=== PATIENT | male | born 1950 | race Caucasian/White ===

== ENCOUNTER 2022-08-20 03:27 | Outpatient (CLI) | payer OTHER, SELFPAY ==
[2022-08-20 13:47] LABS: Abs Immature Grans 0.06 10^3/uL (0.0-0.06); Absolute Basophil Count 0.08 10^3/uL (0.0-0.2); Absolute Eosinophil Count 0.18 10^3/uL (0.0-0.7); Absolute Lymphocyte Count 1.76 10^3/uL (1.2-3.4); Absolute Monocyte Count 0.81 10^3/uL (0.1-0.8); Absolute Neutrophil Count 5.76 10^3/uL (1.2-6.7); Basophils % 0.9; Eosinophils % 2.1; HCT 43.9 % (40.0-50.0); HGB 15.3 g/dL (13.5-17.5); Immature Grans % 0.7; Lymphocytes % 20.3; MCH 32.6 pg (27.0-33.0); MCHC 34.9 % (32.0-36.0); MCV 93 fL (80-95); MPV 9.9 fL (8.0-11.0); Monocytes % 9.4; Neutrophils % 66.6; Platelet Count 235 10^3/uL (130-400); RDW 13.6 % (11.8-14.1); WBC 8.65 10^3/uL (4.4-10.8)
[2022-08-20 14:03] LABS: ALT 33 U/L (16-63); AST 24 U/L (15-37); Albumin 3.8 g/dL (3.4-5.0); Alkaline Phosphatase 64 U/L (46-116); Anion Gap 6.5 mmol/L (3-11); BUN 15 mg/dL (7-18); Bilirubin, Total 0.6 mg/dL (0.2-1.0); CO2 29.5 mmol/L (21.0-32.0); CREATININE 1.1 mg/dL (0.70-1.30); Chloride 101 mmol/L (98-107); Estimated GFR 70.44 (mL/min/1.73m2); Glucose 100 mg/dL (74-106); Sodium 137 mmol/L (136-145); Total Protein 6.9 g/dL (6.4-8.2)
[2022-08-21 11:11] LABS: PSA, Ultrasensitive 7.2 ng/mL (<= 6.5)
== END 2022-08-20 03:28 | disposition home or self-care (01) ==
LOC: LBO 03:27
PROVIDERS: PCP Hospitalist; Visit Provider Internal Medicine Hematology & Oncology
DX: C61 Malignant neoplasm of prostate (principal); C76.0 Malignant neoplasm of head, face and neck
CPT/HCPCS: 36415; 80053; 84153; 83735; 85025

== ENCOUNTER 2022-11-05 12:33 | Outpatient (REF) | payer OTHER, SELFPAY ==
[2022-11-05 10:23] LABS: Abs Immature Grans 0.03 10^3/uL (0.0-0.06); Absolute Basophil Count 0.06 10^3/uL (0.0-0.2); Absolute Eosinophil Count 0.18 10^3/uL (0.0-0.7); Absolute Lymphocyte Count 2.08 10^3/uL (1.2-3.4); Absolute Monocyte Count 0.95 10^3/uL (0.1-0.8); Absolute Neutrophil Count 7.15 10^3/uL (1.2-6.7); Basophils % 0.6; Eosinophils % 1.7; HCT 43.1 % (40.0-50.0); Immature Grans % 0.3; Lymphocytes % 19.9; MCH 31.6 pg (27.0-33.0); MCHC 34.8 % (32.0-36.0); MCV 91 fL (80-95); Monocytes % 9.1; Neutrophils % 68.4; Platelet Count 236 10^3/uL (130-400); RBC 4.75 10^6/uL (4.36-5.78); WBC 10.45 10^3/uL (4.4-10.8)
[2022-11-05 10:47] LABS: ALT 28 U/L (16-63); AST 16 U/L (15-37); Albumin 3.5 g/dL (3.4-5.0); Alkaline Phosphatase 71 U/L (46-116); BUN 16 mg/dL (7-18); Bilirubin, Total 0.5 mg/dL (0.2-1.0); Calcium 8.9 mg/dL (8.5-10.1); Chloride 103 mmol/L (98-107); Estimated GFR 78.98 (mL/min/1.73m2); FREE T4 1.03 ng/dL (0.76-1.46); Glucose 113 mg/dL (74-106); Sodium 136 mmol/L (136-145); TSH 1.56 uIU/mL (0.36-3.74)
[2022-11-05 13:09] LABS: Magnesium 1.9 mg/dL (1.8-2.4)
== END 2022-11-05 12:34 | disposition home or self-care (01) ==
LOC: LBN 12:33
PROVIDERS: PCP Hospitalist; Visit Provider Internal Medicine Hematology & Oncology
DX: C76.0 Malignant neoplasm of head, face and neck (principal); Z79.899 Other long term (current) drug therapy
CPT/HCPCS: 80053; 83735; 84439; 84443; 85025

== ENCOUNTER 2022-11-26 02:00 | Outpatient (RCR) | payer OTHER, SELFPAY ==
[2022-11-26] MEDS: Normal Saline Flush 10 ML SYR IVP (08:56)
[2022-11-26 09:00] LABS: Abs Immature Grans 0.07 10^3/uL (0.0-0.06); Absolute Basophil Count 0.04 10^3/uL (0.0-0.2); Absolute Eosinophil Count 0.01 10^3/uL (0.0-0.7); Absolute Lymphocyte Count 1.11 10^3/uL (1.2-3.4); Absolute Monocyte Count 0.95 10^3/uL (0.1-0.8); Absolute Neutrophil Count 7.98 10^3/uL (1.2-6.7); Basophils % 0.4; Eosinophils % 0.1; HCT 37.7 % (40.0-50.0); HGB 13.2 g/dL (13.5-17.5); Immature Grans % 0.7; Lymphocytes % 10.9; MCH 32.5 pg (27.0-33.0); MCV 93 fL (80-95); MPV 10.1 fL (8.0-11.0); Monocytes % 9.4; Neutrophils % 78.5; Platelet Count 224 10^3/uL (130-400); RBC 4.06 10^6/uL (4.36-5.78); RDW 15.8 % (11.8-14.1); RDW-SD 53.7 fL; WBC 10.16 10^3/uL (4.4-10.8)
[2022-11-26 09:33] LABS: ALT 32 U/L (16-63); AST 18 U/L (15-37); Albumin 2.7 g/dL (3.4-5.0); Alkaline Phosphatase 58 U/L (46-116); Anion Gap 3.9 mmol/L (3-11); BUN 19 mg/dL (7-18); Bilirubin, Total 0.4 mg/dL (0.2-1.0); CO2 30.1 mmol/L (21.0-32.0); CREATININE 1.3 mg/dL (0.70-1.30); Calcium 8.9 mg/dL (8.5-10.1); Chloride 102 mmol/L (98-107); Estimated GFR 57.65 (mL/min/1.73m2); FREE T4 1.32 ng/dL (0.76-1.46); Glucose 123 mg/dL (74-106); Potassium 4.2 mmol/L (3.5-5.1); Sodium 136 mmol/L (136-145); TSH 1.27 uIU/mL (0.36-3.74); Total Protein 6.4 g/dL (6.4-8.2)
== END 2022-12-12 23:59 | disposition home or self-care (01) ==
LOC: INF 02:00
PROVIDERS: PCP Hospitalist; Visit Provider Internal Medicine Hematology & Oncology
DX: Z79.899 Other long term (current) drug therapy (principal); C76.0 Malignant neoplasm of head, face and neck
CPT/HCPCS: 80053; 96523; 99195; 83735; 84439; 84443; 85025

== ENCOUNTER 2022-12-31 11:00 | Outpatient (RCR) | payer OTHER, SELFPAY ==
[2022-12-17] MEDS: Normal Saline Flush 10 ML SYR IVP (08:38)
[2022-12-17 08:44] LABS: Absolute Basophil Count 0.09 10^3/uL (0.0-0.2); Absolute Eosinophil Count 0.06 10^3/uL (0.0-0.7); Absolute Lymphocyte Count 2.72 10^3/uL (1.2-3.4); Absolute Monocyte Count 1.14 10^3/uL (0.1-0.8); Absolute Neutrophil Count 2.81 10^3/uL (1.2-6.7); Basophils % 1.3; Eosinophils % 0.9; HCT 38.6 % (40.0-50.0); HGB 13.3 g/dL (13.5-17.5); Immature Grans % 1.4; Lymphocytes % 39.3; MCH 32.8 pg (27.0-33.0); MCHC 34.5 % (32.0-36.0); MCV 95 fL (80-95); MPV 9.1 fL (8.0-11.0); Monocytes % 16.5; Neutrophils % 40.6; Platelet Count 395 10^3/uL (130-400); RBC 4.06 10^6/uL (4.36-5.78); RDW 16.8 % (11.8-14.1); RDW-SD 57.8 fL; WBC 6.92 10^3/uL (4.4-10.8)
[2022-12-17 09:15] LABS: ALT 35 U/L (16-63); AST 20 U/L (15-37); Albumin 3.3 g/dL (3.4-5.0); Alkaline Phosphatase 88 U/L (46-116); Anion Gap 6.1 mmol/L (3-11); BUN 30 mg/dL (7-18); Bilirubin, Total 0.4 mg/dL (0.2-1.0); CO2 29.9 mmol/L (21.0-32.0); CREATININE 1.2 mg/dL (0.70-1.30); Calcium 9.3 mg/dL (8.5-10.1); Chloride 100 mmol/L (98-107); Estimated GFR 63.46 (mL/min/1.73m2); FREE T4 1.13 ng/dL (0.76-1.46); Glucose 101 mg/dL (74-106); Magnesium 2.1 mg/dL (1.8-2.4); Potassium 4.5 mmol/L (3.5-5.1); Sodium 136 mmol/L (136-145); TSH 1.58 uIU/mL (0.36-3.74); Total Protein 7.3 g/dL (6.4-8.2)
[2022-12-31] MEDS: Normal Saline Flush 10 ML SYR IVP (11:08)
[2022-12-31 11:12] LABS: Abs Immature Grans 0.03 10^3/uL (0.0-0.06); Absolute Basophil Count 0.02 10^3/uL (0.0-0.2); Absolute Lymphocyte Count 2.44 10^3/uL (1.2-3.4); Absolute Monocyte Count 0.92 10^3/uL (0.1-0.8); Absolute Neutrophil Count 6.99 10^3/uL (1.2-6.7); Basophils % 0.2; HCT 34.2 % (40.0-50.0); HGB 12.3 g/dL (13.5-17.5); Immature Grans % 0.3; Lymphocytes % 23.5; MCH 33.3 pg (27.0-33.0); MCV 93 fL (80-95); MPV 10.2 fL (8.0-11.0); Monocytes % 8.8; Neutrophils % 67.2; Platelet Count 153 10^3/uL (130-400); RBC 3.69 10^6/uL (4.36-5.78); RDW 17.5 % (11.8-14.1); RDW-SD 57.1 fL
[2022-12-31 11:37] LABS: ALT 50 U/L (16-63); AST 24 U/L (15-37); Albumin 2.9 g/dL (3.4-5.0); Alkaline Phosphatase 75 U/L (46-116); Anion Gap 7.9 mmol/L (3-11); BUN 28 mg/dL (7-18); Bilirubin, Total 0.5 mg/dL (0.2-1.0); CO2 27.1 mmol/L (21.0-32.0); CREATININE 1.2 mg/dL (0.70-1.30); Calcium 8.8 mg/dL (8.5-10.1); Chloride 101 mmol/L (98-107); Estimated GFR 63.46 (mL/min/1.73m2); FREE T4 1.23 ng/dL (0.76-1.46); Glucose 103 mg/dL (74-106); Magnesium 1.4 mg/dL (1.8-2.4); Potassium 4.5 mmol/L (3.5-5.1); Sodium 136 mmol/L (136-145); TSH 1.95 uIU/mL (0.36-3.74); Total Protein 6.7 g/dL (6.4-8.2)
== END 2023-01-11 23:59 | disposition home or self-care (01) ==
LOC: INF 11:00
PROVIDERS: PCP Hospitalist; Visit Provider Internal Medicine Hematology & Oncology
DX: Z79.899 Other long term (current) drug therapy (principal); C76.0 Malignant neoplasm of head, face and neck; Z45.2 Encounter for adjustment and management of vascular access device
CPT/HCPCS: 36591; 80053; 83735; 84439; 84443; 85025

== ENCOUNTER 2023-01-03 15:21 | Inpatient (IN) | payer OTHER, SELFPAY ==
[2023-01-03] VITALS (45 sets, daily range): BP systolic 78–166; BP diastolic 43–84; PULSE 87–120; RESP 15–42; TEMP 36.8–38.1; O2SAT 91–95
--- NOTE | 2023-01-03 15:15 | RT.EKG_ITS ---
APPROVED REPORT Exam: Resting ECG Reason for Exam: sob Patient Location: E HR:112 bpm ECG Measurements Heart Rate 112 AXIS SD 139 P 76 QRSd 128 QRS 28 QT 333 T 61 QTc 455 Conclusion Sinus tachycardia...rate> 99 Probable left atrial enlargement...P >50mS, <-0.10mV V1 Right bundle branch block...QRSd>120, terminal axis(90,270) Anteroseptal infarct, age indeterminate...Q >35mS, T neg, V1-V2
--- NOTE | 2023-01-03 16:01 | NUR.NOTE ---
Nursing Note: patient expressed concern that patient is dehydrated from multiple loose bowel movements and increased weakness
--- NOTE | 2023-01-03 16:22 | W.ED.GENAD ---
Discharge Plan Disposition Patient Disposition: Admit to [facility] Condition: Critical Discharge Details Clinical Impression: Septic shock, Pneumonia, COVID-19 Primary Care Provider: Jose Madrigal ED Provider: Martinez Shaw Medical Decision Making 162 -- 72-year-old male with history of undifferentiated cancer, currently receiving chemotherapy, here with generalized weakness and fatigue, generally not feeling well. Patient is tachycardic and hypotensive. He is febrile. I am concerned for sepsis. Initiated IV fluid bolus and will monitor closely. Plan to initiate broad-spectrum antibiotic coverage given immunocompromise state on chemotherapy. We will obtain second IV access. I am concerned about the potential for acute life-threatening pulmonary embolism. Plan to obtain CT of the chest. Patient also with GI symptoms including no bowel movement for the past 3 days and now watery stool today. I will obtain CT of the abdomen pelvis to attempt to identify infectious source. Consider acute life-threatening intracranial traumatic hemorrhage given fall with syncopal episode 4 to 5 days ago. Plan to obtain CT of the head. --Labs reviewed and no significant neutropenia noted. Mild hypomagnesemia at 1.4 noted. I will give magnesium 1 g IV. Urinalysis pending. 1729 --patient reassessed and blood pressure has improved. He does note he is feeling little bit better. Patient has received 1200 mL LR on top of 500 mL prehospital. He just returned from [place] and I recommended the additional 300 mL bolus be given to complete [address] interpretation is pending. 1809 --notified by nursing the patient hypotensive despite 2 L bolus. Plan to initiate treatment with Levophed infusion. CT of the chest, abdomen and pelvis interpreted by radiology: Sclerotic bony lesion T6 suspicious for metastatic disease. Mild consolidative airspace disease right lower lobe. Wall thickening with surrounding inflammatory change at the sigmoid colon consistent with a nonspecific colitis. I will send C. difficile testing. 1814 --I spoke with Dr. Ann, on-call hospitalist, discussed ED presentation and course, he recommends adding doxycycline and request bridging orders be placed to the ICU. 1852 --COVID result positive. I will initiate treatment with dexamethasone 6 mg given requiring nasal cannula oxygen as well as remdesivir 200 mg. I confirmed with patient and his that he would prefer to be DNI and DNR meaning no CPR but is agreeable to other treatments including pressors. HPI General Date/Time Provider Initiated Documentation: 01/03/23 15:48. Limitations to Documentation: no limitations. Information obtained by: patient and family. HPI Narrative: 72-year-old male sent from [facility] with chief complaint of generally not feeling well with concern for generalized weakness and malaise. 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 Patient has been receiving chemotherapy for the past 3 months. He notes he generally has not felt well since starting chemotherapy. 4 days ago he had a syncopal episode when standing from bed. He fell and struck his head on a stove sustaining laceration to his forehead. He had brief loss of consciousness before return to baseline. He did not have headache. He did not seek care after this fall. Related Data Allergies Allergy/AdvReac Type Severity Reaction Status Date / Time niacin AdvReac Intermediate Skin Rash Unverified 01/03/23 17:35 clarithromycin [From Biaxin] AdvReac Unknown Unverified 01/03/23 17:35 General Stated Complaint: SOB/SuddenOnset GEETHA: 2 Review of Systems All systems reviewed & are unremarkable except as noted in HPI and below Constitutional Constitutional: Denies fever(s) Cardiovascular Cardiovascular: Denies chest pain PFSH All Active Problems (Updated 01/03/23 @ 18:55 by Martinez Shaw MD) Septic shock (Acute) Pneumonia (Acute) COVID-19 (Acute) Social History Smoking risk assessment performed?: No Alcohol Intake: former Drug use: Occasionally Substance use type: marijuana Details: Uses THC eatables Do you feel safe at home: Yes Do you feel safe in your relationship?: Yes Exam Const General: cooperative and ill appearing Orientation: alert Other: Slowed mentation but oriented to person place and time HENMT Mouth: mucous membranes dry Other: Dry mucous membranes, cracked lips, recently diagnosed with oral thrush and being treated with nystatin and Magic mouthwash Eyes Conjunctivae: normal conjunctivae Sclera: normal sclerae EOM: EOM intact bilaterally Neck Neck: trachea midline Resp Auscultation: clear to auscultation bilaterally, no rales, no rhonchi and no wheezes Cardio Rate: tachycardic Rhythm: regular rhythm GI Palpation: soft, not firm, no guarding, no masses, not rigid and nontender Skin General skin exam: no rashes or lesions noted Neuro General: patient alert, patient awake, patient oriented x3 and tone normal Extrem General: no edema Psych Appearance: grossly normal Speech and Movement: speech and movement normal Course Vital Signs Vital signs: Vital Signs Temperature 36.8 C 01/03/23 15:26 Pulse 117 H 01/03/23 15:26 Respiratory Rate 39 H 01/03/23 15:26 Blood Pressure 108/52 L 01/03/23 15:26 Pulse Oximetry 93 01/03/23 15:26 Temperature 36.8 C 01/03/23 15:26 Temperature Source Skin 01/03/23 15:26 Pulse 117 H 01/03/23 15:26 Respiratory Rate 16 01/03/23 15:54 Respiratory Effort Normal, Non-Labored 01/03/23 15:54 Respiratory Depth Normal 01/03/23 15:54 Respiratory Pattern Irregular 01/03/23 15:54 Blood Pressure 108/52 L 01/03/23 15:26 Blood Pressure Position Supine 01/03/23 15:26 Pulse Oximetry 93 01/03/23 15:26 Oxygen Delivery Method Room Air 01/03/23 15:26 Oxygen Flow Rate 0 01/03/23 15:26 Pain Level 0 01/03/23 15:26 Lab/Test Results Lab/Test Results: 01/03/23 15:54 Blood Blood Culture - Pending 01/03/23 15:54 Blood Blood Culture - Pending
[2023-01-03 16:29] LABS: Lactate 1.4 mmol/L (0.6-1.4)
--- NOTE | 2023-01-03 16:29 | DI.CT_ITS ---
Exam(s) CT CHEST PE ABD PELVIS W EXAM: CT CHEST PE ABD PELVIS W CLINICAL HISTORY: sob, cancer, hypotension. TECHNIQUE: Imaging Protocol: Axial CT angiography was performed with multi-slice acquisition and mu lti-planar and/or 3D reconstructions. CONTRAST MATERIAL: Intravenous: Omnipaque 350contrast volume:100 mL COMPARISON: No exams were available for comparison FINDINGS: CHEST: Tracheobronchial tree: Patent where visualized. Pulmonary parenchyma: Paraseptal emphysematous changes are present in the lungs. There is an area of consolidation in the right lower lobe. There also scattered small infiltrate seen in the right uppe r lobe and left lower lobe. Pulmonary Arteries: No evidence of filling defect to suggest pulmonary emboli. Mediastinum and Mimi: No dominant adenopathy or fluid collection. The esophagus is unremarkable. Visualized thyroid gland: Unremarkable. Pleura: No effusion or pneumothorax. Heart: The heart is not dilated. Coronary artery calcifications are present. No pericardial effusion . Aorta: Thoracic aorta non-dilated. No evidence of dissection. Atherosclerosis. Bones: Within normal limits for the patient's age. There is a sclerotic focus in the T6 vertebral bod y. Soft tissues: Unremarkable. Tubes, Catheters, and Lines: There is a right-sided infusion catheter. ABDOMEN: Liver: Normal density. There are several tiny well-circumscribed hypodense lesions in the liver. The y appear to represent cysts. There are several tiny hypodense lesions which are too small for furthe r characterization. No definite suspicious hepatic masses are identified. Portal, Superior Mesenteric, and Splenic Veins: Unremarkable. Gallbladder and Biliary Tract: Status post cholecystectomy. There is dilatation of the extrahepatic bile ducts which can be seen following cholecystectomy. Pancreas: Normal density, no abnormal calcifications or inflammatory process. Spleen: Normal. Adrenals: No masses seen. Kidneys: Normal size, contour and axis. No radiodense stones or obstructive uropathy. There are simpl e left renal cysts. No follow-up is recommended. There are tiny hypodensities seen in both kidneys. They are too small for further characterization but likely reflect small cysts. There are 2 hyperd ense lesions in the left kidney. The larger is located in the posterior and superior pole and measur es 1.4 cm. There is a 2nd nodule which measures 0.6 cm in the superior anterior left kidney. These are indeterminate. They do not meet the criteria for simple cyst. Abdominal Aorta: Abdominal portion non-dilated. Atherosclerosis. Bowel: There is diverticulosis in the colon without evidence of diverticulitis. There is thickening of the wall of the rectosigmoid colon. There is no evidence of bowel obstruction. Appendix is unrem arkable. Peritoneal Cavity: No ascites, collection or mesenteric inflammatory response. No free air. Lymph Nodes: Within normal limits. Bones: Within normal limits for the patient's age. Soft Tissues: There is a small fat containing umbilical hernia. PELVIS: Bladder: There is diffuse thickening of the wall of the urinary bladder. There is a Kwon catheter i n place. The urinary bladder is incompletely distended. Reproductive Organs: There is an enlarged prostate gland. Lymph Nodes: Within normal limits. Bones: Within normal limits. IMPRESSION: 1. No evidence of pulmonary embolism or thoracic aortic dissection. 2. Areas of consolidation in the lungs, particularly the right lower lobe. 3. Thickening of the wall of the rectosigmoid colon which is nonspecific. Colitis/proctitis should b e considered. Please correlate clinically. 4. Nonspecific hyperdense left renal lesions. If there are prior films, they may be submitted for co mparison. In the absence of prior films, further evaluation with ultrasound or MRI is recommended to exclude solid lesion. 5. Sclerotic T6 lesion suspicious for metastasis. No acute osseous abnormality. 6. Diffuse thickening of the wall of the urinary bladder. This may be due to underdistention, cystit is or chronic bladder outlet obstruction. 7. Enlarged prostate gland. RADIATION DOSE DELIVERED: 1,223.94mGy.cm Total DLP DATA REPOSITORY: All CT scans at this facility are submitted to the National Radiology Data Registry (NRDR) Dose Index Registry (DIR) with the [employer] ([employer]). RADIATION OPTIMIZATION: All CT scans at this facility use at least one of these dose optimization te chniques: automated exposure control; mA and/or kV adjustment per patient size (includes targeted exa ms where dose is matched to clinical indication); or iterative reconstruction.
[2023-01-03 16:30] LABS: Abs Immature Grans 0.02 10^3/uL (0.0-0.06); Absolute Basophil Count 0.01 10^3/uL (0.0-0.2); Absolute Lymphocyte Count 0.55 10^3/uL (1.2-3.4); Absolute Monocyte Count 0.64 10^3/uL (0.1-0.8); Basophils % 0.3; HCT 33.3 % (40.0-50.0); HGB 11.9 g/dL (13.5-17.5); Immature Grans % 0.7; Lymphocytes % 18.8; MCHC 35.7 % (32.0-36.0); MCV 92 fL (80-95); MPV 9.8 fL (8.0-11.0); Monocytes % 21.9; Neutrophils % 58.3; Platelet Count 178 10^3/uL (130-400); RBC 3.61 10^6/uL (4.36-5.78); RDW 17.8 % (11.8-14.1); RDW-SD 57.5 fL; WBC 2.92 10^3/uL (4.4-10.8)
--- NOTE | 2023-01-03 16:30 | DI.CT_ITS ---
Exam(s) CT HEAD WO EXAM: CT HEAD WO CLINICAL HISTORY: fall, trauma 4 days ago. TECHNIQUE: Imaging Protocol: Axial computed tomography images with coronal and sagittal reformatted images were created and reviewed COMPARISON: No exams were available for comparison FINDINGS: Ventricles and Extra axial spaces: Normal in size and morphology for the patient's age. Hemorrhage: None. Cerebral parenchyma: Normal. Midline shift: None. Brainstem/Cerebellum: Normal. Calvarium: Normal. Visualized Paranasal sinuses/Mastoids: There is mucosal thickening in the visualized paranasal sinuse s. No fluid levels are seen. The ethmoid air cells, right maxillary sinus and sphenoid sinuses are involved. There is a mucous retention cyst or polyp in the right maxillary sinus. Soft Tissues: Unremarkable. IMPRESSION: No acute intracranial process. RADIATION DOSE DELIVERED: 747.93mGy.cm Total DLP DATA REPOSITORY: All CT scans at this facility are submitted to the National Radiology Data Registry (NRDR) Dose Index Registry (DIR) with the [employer] (ACR). RADIATION OPTIMIZATION: All CT scans at this facility use at least one of these dose optimization te chniques: automated exposure control; mA and/or kV adjustment per patient size (includes targeted exa ms where dose is matched to clinical indication); or iterative reconstruction.
[2023-01-03] MEDS: Lactated Ringers 1,500 ML 1000 ML IV (16:45)
[2023-01-03] MEDS: PIPERACILLIN/TAZO 4.5 GM in Normal Saline 100 ML IVPB (16:46)
[2023-01-03 16:51] LABS: ALT 45 U/L (16-63); AST 23 U/L (15-37); Albumin 2.8 g/dL (3.4-5.0); Alkaline Phosphatase 78 U/L (46-116); Anion Gap 9.2 mmol/L (3-11); BUN 26 mg/dL (7-18); Bilirubin, Total 0.4 mg/dL (0.2-1.0); CO2 25.8 mmol/L (21.0-32.0); CREATININE 1.4 mg/dL (0.70-1.30); Calcium 8.3 mg/dL (8.5-10.1); Chloride 100 mmol/L (98-107); Estimated GFR 52.74 (mL/min/1.73m2); Glucose 120 mg/dL (74-106); Magnesium 1.4 mg/dL (1.8-2.4); Potassium 4.4 mmol/L (3.5-5.1); Sodium 135 mmol/L (136-145); Total Protein 6.5 g/dL (6.4-8.2); Troponin I < 50 ng/L (<or=60)
[2023-01-03] MEDS: Omnipaque 350 MG/ML 100 ML BTL IJ (16:52)
[2023-01-03] MEDS: Normal Saline - Diluent 50 ML VIAL IJ (16:53)
[2023-01-03] MEDS: MAGNESIUM SULFATE 1 GM/100 ML BAG IVPB (17:28)
--- NOTE | 2023-01-03 17:42 | DI.VRAD_ITS ---
PROCEDURE INFORMATION: Exam: CT Head Without Contrast Exam date and time: 01/03/2023 5:08 PM Age: 72 years old Clinical indication: Injury or trauma; Blunt trauma (contusions or hematomas); Patient HX: Fall, trauma 4 days ago TECHNIQUE: Imaging protocol: Computed tomography of the head without contrast. COMPARISON: No relevant prior studies available. FINDINGS: Brain: There is normal sulcal prominence for a patient of this age. There are periventricular white matter changes consistent with small vessel disease. Cerebral ventricles: The ventricular system is midline and symmetrical. It is normally dilated for patient of this age. Paranasal sinuses: There is mucosal thickening of the ethmoid sinuses. There are mucous retention cysts within the right maxillary sinus. There is slight mucosal thickening of the sphenoid sinuses. Mastoid air cells: Visualized mastoid air cells are well aerated. Bones/joints: Unremarkable. No acute fracture. Soft tissues: Unremarkable. IMPRESSION: Age-appropriate atrophy. Sinus findings as above. Dictated and Authenticated by: Andrew Meier MD. Ordering:PRAVEEN Henriquez MD
[2023-01-03 17:43] LABS: Bilirubin Negative (Negative); Blood Trace-intact (Negative); Clarity Clear (Clear); Glucose Negative (Negative); Ketones Negative (Negative); Leukocyte Esterase Negative (Negative); Nitrite Negative (Negative); Specific Gravity 1.015 (1.005-1.025); Urobilinogen 0.2 mg/dL (Up to 0.2)
[2023-01-03 17:52] LABS: Bacteria Rare HPF (Negative); C & S Indicated? No; Casts Negative LPF (Negative); Crystals Negative HPF (Negative); Epithelial Cells Few HPF (Negative); Mucus Trace (Negative); Other Cells Few Transitional (Negative); RBC 0-2 HPF (0-2); WBC 0-2 HPF (0-5)
--- NOTE | 2023-01-03 17:57 | DI.VRAD_ITS ---
PROCEDURE INFORMATION: Exam: CTA Chest With Contrast CTA Abdomen With Contrast Exam date and time: 01/03/2023 5:11 PM Age: 72 years old Clinical indication: Shortness of breath; Patient HX: SOB, cancer, hypotension, fall 4 days ago; Additional info: Fever, on chemo, decreased bm TECHNIQUE: Imaging protocol: Computed tomographic angiography of the chest with contrast. Exam focused on the arteries. Computed tomographic angiography of the abdomen with contrast. Exam focused on the arteries. 3D rendering (Not supervised by radiologist): MIP and/or 3D reconstructed images were created by the technologist. COMPARISON: No relevant prior studies available. FINDINGS: VASCULATURE: Pulmonary arteries: Normal. No pulmonary emboli. Aorta: Aorta demonstrates mild atherosclerotic calcification. Celiac trunk and mesenteric arteries: No occlusion or significant stenosis. Renal arteries: [id number] stenosis origin renal arteries bilaterally.Bladder decompressed by a Kwon catheter, but otherwise unremarkable. Small amount of intraluminal air consistent with instrumentation. CHEST: Lungs: Mild consolidative airspace disease right lower lobe. Pleural spaces: Unremarkable. No pneumothorax. No pleural effusion. Heart: Unremarkable. No cardiomegaly. No pericardial effusion. Coronary arteries: Coronary artery calcifications. ABDOMEN AND PELVIS: Liver: Several hepatic cysts largest 1.2 cm. Intrahepatic and common bile duct dilation with the common bile duct up to 15 mm. This may be within normal limits status post cholecystectomy, but a distal common duct obstruction or retained stone cannot be completely excluded. Correlate clinically. Gallbladder and bile ducts: Gallbladder surgically absent. Pancreas: Unremarkable. No mass. No ductal dilation. Spleen: Unremarkable. No splenomegaly. Adrenal glands: Unremarkable. No mass. Kidneys and ureters: Cysts both kidneys largest 2.2 cm. No hydronephrosis. Stomach and bowel: Colonic diverticula present. No evidence of acute diverticulitis at this time. Wall thickening with surrounding inflammatory change at the sigmoid colon consistent with a nonspecific colitis. Intraperitoneal space: Unremarkable. No free air. No significant fluid collection. Reproductive: Hypertrophy of the prostate. Lymph nodes: Prominent mediastinal nodes noted. Bones/joints: Sclerotic bony lesion T6 suspicious for metastatic disease. Compression fracture superior endplate T11 which appears nonacute. Thoracolumbar scoliosis. No acute bony abnormality. Soft tissues: Unremarkable. IMPRESSION: 1. Sclerotic bony lesion T6 suspicious for metastatic disease. 2. Mild consolidative airspace disease right lower lobe. 3. Wall thickening with surrounding inflammatory change at the sigmoid colon consistent with a nonspecific colitis. Dictated and Authenticated by: Jose Duran MD. Ordering:PRAVEEN Henriquez MD
[2023-01-03 18:01] LABS: Source Nasal/Nares
[2023-01-03] MEDS: Norepinephrine in D5W 8 MG/250 ML BAG 9.375 MG IV (18:10)
[2023-01-03] MEDS: DOXYCYCLINE 100 MG in Normal Saline 100 ML IVPB (18:34)
[2023-01-03 18:44] LABS: COVID-19 PCR Positive (Negative)
[2023-01-03] MEDS: Dexamethasone 4 MG/ML VIAL 6 MG IVP (19:08)
[2023-01-03 19:20] LABS: Troponin I < 50 ng/L (<or=60)
[2023-01-03] MEDS: REMDESIVIR 200 MG in Normal Saline 250 ML 250 MG IVPB (20:36)
--- NOTE | 2023-01-03 21:44 | HPE_ITS ---
Date of service: 01/03/23 Time of Service: 21:44 Assessment and Plan Assessment and plan (1) Septic shock: Start date: 01/03/23 Status: Acute Assessment and plan: This is a 72-year-old gentleman presenting with complex of symptoms of weakness and recent falls with negative imaging for injury with acute onset of fever and hypotension with concerns for sepsis with shock. He is responding to IV fluid but not well and norepinephrine infusion was initiated. His blood pressure has stabilized, we continued with some IV fluids with acute COVID infection invol ving probably his lungs with right lower lobe infiltrate and evidence of colitis. He will continue on broad-spectrum IV antibiotic therapy with Zosyn and doxycycline as well as supportive care with treatment of his COVID-19 with dexamethasone and remdesivir. 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 He is a full code (2) Pneumonia: Start date: 01/03/23 Status: Acute Assessment and plan: Continue Zosyn and doxycycline with follow-up images as needed. Respiratory support as needed with oxygen. Monitor cardiac and respiratory status. He is in ICU level care. (3) COVID-19: Start date: 01/03/23 Status: Acute Assessment and plan: Patient has was the respiratory and GI symptoms with his infection with suggested colitis and right lower lobe infiltrates. He is unaware of exposure. Continue remdesivir 200 mg initially then 1 mg daily x4. He also will have Lovenox for DVT prophylaxis and dexamethasone 10 mg IV daily. 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 Patient is just starting to think about these processes. Patient of care consult would be appropriate long-term. (5) Repeated falls: Start date: 12/29/22 Status: Acute Assessment and plan: Patient is losing weight with his new diagnosis of undifferentiated carcinoma with the treatment making him feel ill. He did fall recently and was uncertain as to whether he had hurt himself a CT scan of the head revealing no sequela or injuries as well as other imaging being unrevealing for acute trauma. Patient therapy and outpatient therapy once he is improving from his treatment of septic shock. Prognosis is poor. 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 He is on chemotherapy since then and is feeling worse with recent constipation having watery stools and shortness of breath with dizziness having fallen about 4 to 5 days prior to admission when standing from bed. He is generally weak and worsening and states that this has been since initiating chemotherapy and his new diagnosis of undifferentiated carcinoma. He has not discussed CODE STATUS with his family and plan discussed with the need toward DNR/DNI but he states that he needs to think further on his wishes for CODE STATUS. He will remain a full code. In the ED he was given IV fluid resuscitation with his tachycardia improving but he continues to be tachypneic and feels weak. He did test positive for COVID found to have a probable right lower lobe pneumonia or infiltrate which being covered with IV antibiotic therapy. He did have fever along with his weakness with diaphoresis and has had increased urination and loose stools as mentioned. He denies any dysuria. He does not know where he may have cough COVID not having any exposure of which she is aware. Patient has not been on chronic medications or seeing physicians much before his recent diagnosis with no home medications listed review of the ED nurses. The patient was hypotensive in the ED and there is concern for septic shock the patient initially treated with IV fluids and now on norepinephrine infusion. This will be maintained to maintain blood pressure with fluids as needed. He will have ICU admission for his acute septic shock. As stated, he is a full code. Review of Systems Narrative: 13 point review of systems otherwise unrevealing or stable. PFSH All Active Problems (Updated 01/03/23 @ 22:49 by Jose Ann) Repeated falls (Acute) Falls (Acute) Undifferentiated carcinoma (Chronic) Septic shock (Acute) Pneumonia (Acute) COVID-19 (Acute) Social History Smoking risk assessment performed?: No Alcohol Intake: former Drug use: Occasionally Substance use type: marijuana Details: Uses THC eatables Do you feel safe at home: Yes Do you feel safe in your relationship?: Yes Meds Allergies and Home Medications Allergies Allergy/AdvReac Type Severity Reaction Status Date / Time niacin AdvReac Intermediate Skin Rash Unverified 01/03/23 17:35 clarithromycin [From Biaxin] AdvReac Unknown Unverified 01/03/23 17:35 Exam Narrative Exam Narrative: General: Patient appears older than stated age, he appears acutely ill, flattened affect but soft voice and monotonous tone in moderate distress from his shortness of breath and weakness. He is alert and oriented at least to person place. HEENT: Normocephalic, coarsened facial features, eyes with pupils equal and reactive light symmetrically, extraocular movement intact and sclera anicteric. Oropharynx with dry mucosa and fair dentition. Neck: Supple without JVD. Back: Stooped posture without CVA tenderness. Lungs: Decreased aeration of the bases more on the right than left with no focalizing rales or rhonchi. Bronchovesicular breath sounds diffusely with no expiratory wheeze. Heart: Regular rhythm with slightly tachycardic rate, no murmurs or gallops appreciated. Abdomen: Normal contour, soft to palpation with no palpable hepatosplenomegaly. Bowel sounds positive all quadrants with no focalizing guarding. No rebound. Genitalia/rectal: Exam deferred. Extremities: No clubbing, cyanosis or pitting edema. Skin: Pale, hot and dry. Actinic changes over sun exposed areas Neuro: Cranial nerves II to XII grossly intact, no focal motor deficits and no tremor. Psych: Flattened affect and depressed mood, patient appears chronically ill, no abnormal thought processes. Remote and recent memory grossly intact. Results Imaging Imaging Studies: Exam: CTA Chest With Contrast CTA Abdomen With Contrast Exam date and time: 01/03/2023 5:11 PM Age: 72 years old Clinical indication: Shortness of breath; Patient HX: SOB, cancer, hypotension, fall 4 days ago; Additional info: Fever, on chemo, decreased bm TECHNIQUE: Imaging protocol: Computed tomographic angiography of the chest with contrast. Exam focused on the arteries. Computed tomographic angiography of the abdomen with contrast. Exam focused on the arteries. 3D rendering (Not supervised by radiologist): MIP and/or 3D reconstructed images were created by the technologist. COMPARISON: No relevant prior studies available. FINDINGS: VASCULATURE: Pulmonary arteries: Normal. No pulmonary emboli. Aorta: Aorta demonstrates mild atherosclerotic calcification. Celiac trunk and mesenteric arteries: No occlusion or significant stenosis. Renal arteries: [id number] stenosis origin renal arteries bilaterally.Bladder decompressed by a Kwon catheter, but otherwise unremarkable. Small amount of intraluminal air consistent with instrumentation. CHEST: Lungs: Mild consolidative airspace disease right lower lobe. Pleural spaces: Unremarkable. No pneumothorax. No pleural effusion. Heart: Unremarkable. No cardiomegaly. No pericardial effusion. Coronary arteries: Coronary artery calcifications. ABDOMEN AND PELVIS: Liver: Several hepatic cysts largest 1.2 cm. Intrahepatic and common bile duct dilation with the common bile duct up to 15 mm. This may be within normal limits status post cholecystectomy, but a distal common duct obstruction or retained stone cannot be completely excluded. Correlate clinically. Gallbladder and bile ducts: Gallbladder surgically absent. Pancreas: Unremarkable. No mass. No ductal dilation. Spleen: Unremarkable. No splenomegaly. Adrenal glands: Unremarkable. No mass. Kidneys and ureters: Cysts both kidneys largest 2.2 cm. No hydronephrosis. Stomach and bowel: Colonic diverticula present. No evidence of acute diverticulitis at this time. Wall thickening with surrounding inflammatory change at the sigmoid colon consistent with a nonspecific colitis. Intraperitoneal space: Unremarkable. No free air. No significant fluid collection. Reproductive: Hypertrophy of the prostate. Lymph nodes: Prominent mediastinal nodes noted. Bones/joints: Sclerotic bony lesion T6 suspicious for metastatic disease. Compression fracture superior endplate T11 which appears nonacute. Thoracolumbar scoliosis. No acute bony abnormality. Soft tissues: Unremarkable. IMPRESSION: 1. ? Sclerotic bony lesion T6 suspicious for metastatic disease. 2. ? Mild consolidative airspace disease right lower lobe. 3. ? Wall thickening with surrounding inflammatory change at the sigmoid colon consistent with a nonspecific colitis. Exam: CT Head Without Contrast Exam date and time: 01/03/2023 5:08 PM Age: 72 years old Clinical indication: Injury or trauma; Blunt trauma (contusions or hematomas); Patient HX: Fall, trauma 4 days ago TECHNIQUE: Imaging protocol: Computed tomography of the head without contrast. COMPARISON: No relevant prior studies available. FINDINGS: Brain: There is normal sulcal prominence for a patient of this age. There are periventricular white matter changes consistent with small vessel disease. Cerebral ventricles: The ventricular system is midline and symmetrical.? It is normally dilated for patient of this age. Paranasal sinuses: There is mucosal thickening of the ethmoid sinuses. There are mucous retention cysts within the right maxillary sinus. There is slight mucosal thickening of the sphenoid sinuses. Mastoid air cells: Visualized mastoid air cells are well aerated. Bones/joints: Unremarkable. No acute fracture. Soft tissues: Unremarkable. IMPRESSION: Age-appropriate atrophy. Sinus findings as above. Labs 01/03/23 16:24 01/03/23 16:24 Labs: Laboratory Results - last 24 hr 01/03/23 01/03/23 01/03/23 16:24 16:24 16:24 WBC 2.92 L RBC 3.61 L Hgb 11.9 L Hct 33.3 L MCV 92 MCH 33.0 MCHC 35.7 RDW 17.8 H Plt Count 178 MPV 9.8 Immature Gran % 0.7 Neutrophils % 58.3 Lymphocytes % 18.8 Monocytes % 21.9 Eosinophils % 0.0 Basophils % 0.3 Nucleated RBC % 0.0 Absolute Neutrophils 1.70 Absolute Lymphocytes 0.55 L Absolute Monocytes 0.64 Absolute Eosinophils 0.00 Absolute Basophils 0.01 VBG Lactate 1.4 Sodium 135 L Potassium 4.4 Chloride 100 Carbon Dioxide 25.8 Anion Gap 9.2 BUN 26 H Creatinine 1.4 H Est GFR (CKD-EPI 2020) 52.74 Glucose 120 H Calcium 8.3 L Magnesium 1.4 L Total Bilirubin 0.4 AST 23 ALT 45 Alkaline Phosphatase 78 Troponin I < 50 Total Protein 6.5 Albumin 2.8 L Urine Color Urine Clarity Urine pH Ur Specific [place] Urine Protein Urine Ketones Urine Blood Urine Nitrite Urine Bilirubin Urine Urobilinogen Ur Leukocyte Esterase Urine RBC Urine WBC Ur Epithelial Cells Urine Crystals Urine Bacteria Urine Casts Urine Mucus Urine Other Ur Culture Indicated? Urine Glucose COVID-19 Source SARS-CoV-2 (PCR) 01/03/23 01/03/23 01/03/23 17:34 17:36 18:48 WBC RBC Hgb Hct MCV MCH MCHC RDW Plt Count MPV Immature Gran % Neutrophils % Lymphocytes % Monocytes % Eosinophils % Basophils % Nucleated RBC % Absolute Neutrophils Absolute Lymphocytes Absolute Monocytes Absolute Eosinophils Absolute Basophils VBG Lactate Sodium Potassium Chloride Carbon Dioxide Anion Gap BUN Creatinine Est GFR (CKD-EPI 2020) Glucose Calcium Magnesium Total Bilirubin AST ALT Alkaline Phosphatase Troponin I < 50 Total Protein Albumin Urine Color Yellow Urine Clarity Clear Urine pH 7.0 Ur Specific [place] 1.015 Urine Protein >=300 H Urine Ketones Negative Urine Blood Trace-intact H Urine Nitrite Negative Urine Bilirubin Negative Urine Urobilinogen 0.2 Ur Leukocyte Esterase Negative Urine RBC 0-2 Urine WBC 0-2 Ur Epithelial Cells Few Urine Crystals Negative Urine Bacteria Rare Urine Casts Negative Urine Mucus Trace Urine Other Few Transitional Ur Culture Indicated? No Urine Glucose Negative COVID-19 Source Nasal/Nares SARS-CoV-2 (PCR) Positive A* Last Vital Signs Temp 36.8 C 01/03/23 15:26 Pulse 106 H 01/03/23 16:45 Resp 32 H 01/03/23 16:50 BP 102/53 L 01/03/23 16:45 Pulse Ox 93 01/03/23 15:26 Time Spent Time spent with Patient: >75 minutes Time was spent: preparing to see the patient(eg.review tests), obtaining and/or reviewing separately otained hiistory, ordering medications,tests, procedures, referring, communicating with other health home care chaplain, indepentently interpreting results, counseling the patient and care coordination
[2023-01-03 22:11] LABS: TSH (W/Ref FT4) 0.77 uIU/mL (0.36-3.74)
[2023-01-03] MEDS: MAGNESIUM SULFATE 2 GM/50 ML BAG IVPB (22:22)
[2023-01-03] MEDS: Enoxaparin 40 MG/0.4 ML SYR SC (22:25)
[2023-01-03] MEDS: Normal Saline 1,000 ML 125 ML IV (22:26)
[2023-01-03] MEDS: Acetaminophen 325 MG TAB PO (22:26)
[2023-01-03] MEDS: PIPERACILLIN/TAZO 3.375 GM in Normal Saline 50 ML IVPB (22:41)
[2023-01-04] VITALS (85 sets, daily range): BP systolic 89–153; BP diastolic 48–121; PULSE 74–121; RESP 13–36; TEMP 36.2–37.3; O2SAT 91–97
[2023-01-04] MEDS: PIPERACILLIN/TAZO 3.375 GM in Normal Saline 50 ML IVPB ×4 (03:56→21:15)
[2023-01-04] MEDS: DOXYCYCLINE 100 MG in Normal Saline 100 ML IVPB ×2 (05:05→18:13)
--- NOTE | 2023-01-04 06:54 | W.PULMCC ---
General Date of Service Date of service: 01/04/23 Time of Service: 06:54 Reason for Admission to ICU: Septic Shock Assessment and Plan Assessment and plan (1) Hypovolemic shock: Status: Acute (2) Falls: Status: Acute (3) Undifferentiated carcinoma: Status: Chronic (4) Proteinuria: Status: Acute (5) Pneumonia: Status: Acute (6) COVID-19: Status: Acute (7) Colitis: Status: Acute (8) Leukopenia: Status: Acute (9) Anemia: Status: Chronic (10) Hyponatremia: Status: Acute (11) LOLA (acute kidney injury): Status: Acute (12) Hypomagnesemia: Status: Acute (13) Hypoalbuminemia: Status: Acute (14) Respiratory failure with hypoxia: Status: Acute Assessment and plan: This is a 72 yo with metastatic, undifferentiated head and neck carcinoma who presents with falls, weakness and hypotension. I believe diarrhea from his chemo resulted in hypovolemia that causes his hypotension and subsequent falls. He does not appear to be in septic shock, and I suspect he was under-resuscitated based on his physical exam and POCUS. I will give him 1L LR and stop the NS infusion. He does have a pneumonia on imaging, that I do agree with treating. His CT also found colitis, but this may be inflammation due to his more chronic diarrhea issues. I will order inflammatory markers for his COVID given his high risk, however her is only on 1 LPM supplemental O2, and I suspect this to be more of an incidental finding. I suspect his LOLA will quickly recover with the fluids. Recommendations Pulmonary: Hypoxic respiratory failure - supplemental O2 for sats>90% Cardiac: Hypovolemic shock, improved - 1L LR bolus now - stop 'maintenance' fluids - promote oral intake - DC Levophed Renal: LOLA, suspect pre-renal - reasonable urine output - 1L LR as above - strict I/O's Hyponatremia - conitnue to monitor - baseline 136-137 Hypomagnesemia - replete to 2.0 Hypoalbuminemia - continue to monitor Proteinuria - suspect due to LOLA - further assessment outpatient I&O: Intake & Output 01/01/23 01/02/23 01/03/23 01/04/23 23:59 23:59 23:59 23:59 Intake Total 1890.348 / 1890.348 168.281 / 168.281 Output Total 475 / 475 Balance 1890.348 / 1740.348 -306.719 / -306.719 Weight 61.5 kg 61.9 kg Daily Fluid Goal:: slightly positive GI Nutrition: Nutrition - regular diet Date of Last Bowel Movement: 01/03/23 Infectious Disease: Multilobar pnuemonia - on Zosyn and doxycycline - can discharge on Augmentin, total 10 days - urine antigens for legionella and strep - sputum culture if able - blood cultures pending - Fungitell COVID - on remdesivir and dexamethasone - can decreased 10mg dexamethasone to 6mg - ferritin, CRP, LDH, D-Dimer ordered - if inflammatory markers are high, recommend barcitinib Colitis - suspect reactive inflammation from subacute to chronic diarrhea Hematologic: Leukopenia - due to viral infection/pneumonia - monitor ANC Anemia - chronic, continue to monitor Neurologic: Falls - suspect related to hypotension from hypovolemia - head CT with no bleed/large CVA Endocrine: No acute concerns Lines: Right port PIV [place] Prophylaxis: Lovenox Code Status: Resuscitation Status Full Code Subjective Critical and life-threatening events over the past 24 hours: This is a 72 yo with 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 He receives cisplatin/FU/pembrolizumab started 11/05/22. He does receive 5mg dexamethasone with his regimen. In reviewing his oncology lab work - his last CBC was 10/08/22 with them at which time his WBC count was 8.0 with an ANC of 5.07. He has also had prior issues with diarrhea in response to his chemo regimen [place] [facility] [place] He presented with falls, weakness, shortness of breath and watery stools. He was found to be COVID positive and is on dexamethasone and remdesivir. He did not have inflammatory markers ordered. He had a CT C/A/P which was significant for a multilobar pneumonia and a sigmoid colon colitis. His ANC on admission is 1700 with a leukopenia of 2.92. This morning when I asked him how he is feeling, he stated I don't know. He denies outward pain currently and does endorse that he has issues with diarrhea due to his chemo. He is not having a hard time breathing. Exam Narrative Exam Narrative: Gen: NAD, normal respiratory effort, well-nourished HENT: PERRL, abrasions and lacerations present on face, dry oral mucosa. Chest: No respiratory distress, normal appearance of chest, clear to auscultation bilaterally, no crackles or wheezes, normal inspiratory effort Heart: regular rate and rhythym, no murmurs, rubs or gallops Abdomen: Non-distended, soft, non tender Extremities: No clubbing, edema, cyanosis, rashes Neuro: AAOx3 , non focal Psych: cooperative, appropriate mental affect Most Recent VS/Results Last Vital Signs Temp 36.7 C 01/04/23 04:15 Pulse 75 01/04/23 04:30 Resp 21 01/04/23 04:30 BP 101/56 L 01/04/23 04:30 Pulse Ox 94 01/04/23 04:30 Laboratory Results - last 24 hr 01/03/23 01/03/23 01/03/23 16:24 16:24 16:24 WBC 2.92 L RBC 3.61 L Hgb 11.9 L Hct 33.3 L MCV 92 MCH 33.0 MCHC 35.7 RDW 17.8 H Plt Count 178 MPV 9.8 Immature Gran % 0.7 Neutrophils % 58.3 Lymphocytes % 18.8 Monocytes % 21.9 Eosinophils % 0.0 Basophils % 0.3 Nucleated RBC % 0.0 Absolute Neutrophils 1.70 Absolute Lymphocytes 0.55 L Absolute Monocytes 0.64 Absolute Eosinophils 0.00 Absolute Basophils 0.01 VBG Lactate 1.4 Sodium 135 L Potassium 4.4 Chloride 100 Carbon Dioxide 25.8 Anion Gap 9.2 BUN 26 H Creatinine 1.4 H Est GFR (CKD-EPI 2020) 52.74 Glucose 120 H Calcium 8.3 L Magnesium 1.4 L Total Bilirubin 0.4 AST 23 ALT 45 Alkaline Phosphatase 78 Troponin I < 50 Total Protein 6.5 Albumin 2.8 L TSH Urine Color Urine Clarity Urine pH Ur Specific [place] Urine Protein Urine Ketones Urine Blood Urine Nitrite Urine Bilirubin Urine Urobilinogen Ur Leukocyte Esterase Urine RBC Urine WBC Ur Epithelial Cells Urine Crystals Urine Bacteria Urine Casts Urine Mucus Urine Other Ur Culture Indicated? Urine Glucose COVID-19 Source SARS-CoV-2 (PCR) 01/03/23 01/03/23 01/03/23 16:24 17:34 17:36 WBC RBC Hgb Hct MCV MCH MCHC RDW Plt Count MPV Immature Gran % Neutrophils % Lymphocytes % Monocytes % Eosinophils % Basophils % Nucleated RBC % Absolute Neutrophils Absolute Lymphocytes Absolute Monocytes Absolute Eosinophils Absolute Basophils VBG Lactate Sodium Potassium Chloride Carbon Dioxide Anion Gap BUN Creatinine Est GFR (CKD-EPI 2020) Glucose Calcium Magnesium Total Bilirubin AST ALT Alkaline Phosphatase Troponin I Total Protein Albumin TSH 0.77 Urine Color Yellow Urine Clarity Clear Urine pH 7.0 Ur Specific [place] 1.015 Urine Protein >=300 H Urine Ketones Negative Urine Blood Trace-intact H Urine Nitrite Negative Urine Bilirubin Negative Urine Urobilinogen 0.2 Ur Leukocyte Esterase Negative Urine RBC 0-2 Urine WBC 0-2 Ur Epithelial Cells Few Urine Crystals Negative Urine Bacteria Rare Urine Casts Negative Urine Mucus Trace Urine Other Few Transitional Ur Culture Indicated? No Urine Glucose Negative COVID-19 Source Nasal/Nares SARS-CoV-2 (PCR) Positive A* 01/03/23 01/04/23 18:48 05:35 WBC Cancelled RBC Cancelled Hgb Cancelled Hct Cancelled MCV Cancelled MCH Cancelled MCHC Cancelled RDW Cancelled Plt Count Cancelled MPV Cancelled Immature Gran % Neutrophils % Lymphocytes % Monocytes % Eosinophils % Basophils % Nucleated RBC % Absolute Neutrophils Absolute Lymphocytes Absolute Monocytes Absolute Eosinophils Absolute Basophils VBG Lactate Sodium Potassium Chloride Carbon Dioxide Anion Gap BUN Creatinine Est GFR (CKD-EPI 2020) Glucose Calcium Magnesium Total Bilirubin AST ALT Alkaline Phosphatase Troponin I < 50 Total Protein Albumin TSH Urine Color Urine Clarity Urine pH Ur Specific [place] Urine Protein Urine Ketones Urine Blood Urine Nitrite Urine Bilirubin Urine Urobilinogen Ur Leukocyte Esterase Urine RBC Urine WBC Ur Epithelial Cells Urine Crystals Urine Bacteria Urine Casts Urine Mucus Urine Other Ur Culture Indicated? Urine Glucose COVID-19 Source SARS-CoV-2 (PCR) Review of Systems All systems reviewed & are unremarkable except as noted in HPI and below Time spent with patient Time spent in Critical Care: 65 Time spent in Critical care included: Performing procedures not included in c.c time (POCUS), Chart review, Documenting critically ill care, Time at immediate bedside and Discussing critically ill care with other medical staff Pocus Exam Limited Cardiac Exam DATE OF EXAM: 01/04/23 TIME OF EXAM: 07:45 PROVIDER THAT PERFORMED THE STUDY: Huma Alcantar IS THIS A REPEAT EXAM DURING THIS ENCOUNTER: no REASON FOR EXAM: Hypotension, Hypovolemic shock and Syncope VISUALIZED STRUCTURES: four chambers, LVOT, aortic valve, Interventricular septum and IVC VIEW OBTAINED: Subxiphoid PERTINENT FINDINGS/IMPRESSION: IVC inspiratory collapsability and Other underfilled RV ; No LV dysfunction, No pericardial effusion, No RV dilation and No RV dysfunction Exam complete Multi-Disciplinary Checklist Lines/Tubes CENTRAL LINE: yes, Note: Port ARTERIAL LINE: no BOWENS: yes, [place] Day#: 1 ENDOTRACHEAL TUBE: no ICU Maintenance GLUCOSE 140-180mg/dL: yes NUTRITION AT GOAL: no, Reason/Intervention: diet ordered patient limited appetite PRESSURE ULCER: no RESTRAINTS: no ANTIBIOTICS(if yes, consider Stewardship): Yes Social Issues FAMILY UPDATED: yes PT/OT: no, Reason/Intervention: recommend ordering this GOALS/DISPOSITION/OCULAR CARE TECHNICIAN: yes CODE STATUS: Full Prophylaxis DVT PROPHYLAXIS: yes GI PROPHYLAXIS: no
[2023-01-04] MEDS: Lactated Ringers 1,000 ML 1000 ML IV (08:38)
[2023-01-04] MEDS: MAGNESIUM SULFATE 4 GM/100 ML BAG IVPB (08:40)
[2023-01-04] MEDS: Dexamethasone 10 MG/ML VIAL IVP (08:40)
--- NOTE | 2023-01-04 09:24 | W.PALLCONSUL ---
Date of service: 01/04/23 Time of Service: 11:47 History of Present Illness Narrative: Mr. Barger is 72-year-old gentleman with head and neck cancer who was admitted yesterday with respiratory failure, weakness, hypotension and resulting fall due to COVID 19 infection. Initially presented to ED after fall. Noted on CT scan to have right lower lobe pneumonia. COVID test came back positive. Palliative care team has been asked to consult with him and his family regarding goals of care. History today form and patient. 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 Additional lesion include T6 sclerotic lesion. Patient has received chemotherapy since October 2022. Brief review of notes show side effects such as mouth ulcers, anorexia, thrush. Chemo regimens have been altered and dosing reduced. [facility] notes refers to syncopal episode 12/29/2020. Oncology notes also noted unimpressive response of neck tumor to chemotherapy. Note that he received several IV fluid boluses and IV steroids to help with symptoms and dehydration after each chemo. Patient able to give history as well. Feeling like crap for the last 2 cycles. Complete lack of ambition. Goal is to feel well enough to get back into his workshop and work on his cars. Has only been drinking boost and propel for the last 2 months, basically unable to eat food. reports by phone: -that he has been unable to eat or drink enough for the last 2 weeks since last chemo. -Was feeling better after IV hydration earlier in the week and was able to mow and do some walking. -Then started 2 nights ago coughing. -He has been zofran for nausea, works well (compazine does not). -He is mostly eating Boost, and propel, not much else the last 2 rounds of chemo. -Weight has gone from 179# to 139# -She feels that the neck mass is about half the size. - says that the prognosis they were given was 6 months to 10 years, because they are unsure of primary. Patient uses the same words, they are understanding was that a cure is possible. - Care Team: Primary Care physician: Dr. Jose Arce Oncology: [facility] office, only one note from Dr. Real Centeno (at [facility]) ENT: Dr. Pereyra. Social HX: Patient lives in [place] with his Paula (who still works as a nurse). Car Body repair. One Son lives in [place] ([facility]) and [facility]. Estranged from 2 other biological children. 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 Also had been working on repairing 1931 [employer] [employer] car. Impression of current health status: Crap . What bothers you the most: Lack of ambition, inability to do anything What worries you the most: Not a worrier, not really worrying Current information preferences: Wants to know everything straight out. Function: Ambulation: No aids needed. ADLs: independent iADLs: independent Hearing: Slightly down. Vision: Palliative Performance Scale % Ambulation Activity and Evidence of Disease Self Care Intake Level of Consciousness 100 Full Normal activity, no evidence of disease Full Normal Full 90 Full Normal activity, some evidence of disease Full Normal Full 80 Full Normal activity with effort, some evidence of disease Full Normal or reduced Full 70 Reduced Unable to do normal work, some evidence of disease Full Normal or reduced Full 60 Reduced Unable to do hobby or some housework, significant disease Occasional assist necessary Normal or reduced Full or confusion 50 Mainly sit/lie Unable to do any work, extensive disease Considerable assistance required Normal or reduced Full or confusion 40 Mainly in bed Unable to do any work, extensive disease Mainly assistance Normal or reduced Full, drowsy, or confusion 30 Totally bed bound Unable to do any work, extensive disease Total care Reduced Full, drowsy, or confusion 20 Totally bed bound Unable to do any work, extensive disease Total care Minimal sips Full, drowsy, or confusion 10 Totally bed bound Unable to do any work, extensive disease Total care Mouth care only Drowsy or coma 0 - - - - Patient Score: 70-80 prior to admission, actually able to mow and use backhoe2 days prior to admission Spiritual history: Not buddhist. Palliative review of systems: Pain: None, denies mouth pain Dyspnea: Better than yesterday. Reports chronic dyspnea from his COPD GI symptoms: None currently Appetite: Okay , drinking boost Depression: Denies Anxiety: None Emotional Distress: Spiritual/Existential Distress: Labs: Cr: Previous baseline 1?1 0.3. 1.2?1.4 since admission Liver panel: Normal Albumin: No recent albumin on file at [facility] or [facility] CBC: White count today 2.9, hemoglobin 11.9 Advanced Care Planning: Advanced Directive: He has one. was kind enough to bring in a copy which will be put on file. Health Care Agent: Paula Barger is HCA, Cory is alternate HCA. COLST: says that he is a DNR. But does not have a POLST. [place] COLST done today see A/P Limitations: Assessment and Plan Assessment and plan (1) Palliative care encounter: Status: Acute Assessment and plan: Met with patient in the room (totally donned in COVID [place], but communication seem to go smoothly), talked with both in person and on the phone. Recommended resumption of thrush medication that patient has been taking chronically during chemo, as he is getting both high-dose steroids and antibiotics. Discussed with patient and family option of following up as an outpatient in palliative care clinic going forward for supportive care and help with symptom management. We will call them in a few weeks to see if they would like to schedule follow-up. (He lives in [place]) We will continue to follow patient next week while he is an inpatient. Please call us if patient needs to be seen sooner (2) Advanced care planning/counseling discussion: Status: Acute Assessment and plan: Goals of care discussion with patient today. His goal is to feel strong enough to go to his workshop to work on his cars. He wants to get back some ambition . But he feels that this chemo has knocked the crap out of him . I discussed prognosis with both patient and . Although lymph node on neck is smaller, not gone. He is also extremely debilitated from chemo. I think it is unlikely that he has a curative cancer. Advised him to find out more about this at their next oncology meeting. Patient, agreed that he would not want to have any further chemo of this type due to side effects and debilitation including weight loss stomatitis fatigue brought in copy of advance directive which I reviewed. Discussed with patient CODE STATUS. He is quite clear that he does not want CPR or to be intubated under any circumstances. He still would like to be transferred, treated, receive high flow O2 or BiPAP, antibiotics, IV fluids as needed. COLST form was completed today reflecting his wishes. I reviewed this with the separately (could not meet in the room due to patient's COVID status). She acknowledged that this would be his wishes. . Total of 46 minutes or more spent today on Advance Care Planning. Patient and family participated voluntarily. Advance care planning may include (not limited to) explanation and discussion of advance directives, choosing and appointing healthcare agents, alternatives to various ACP tools, discussion of (and if indicated, completion of) COLST form, discussion of patient's values and overall goals for treatment, palliative and disease directive care options, ways to avoid hospital readmission including hospice discussions, care preferences should the patient's several other adverse health events. See today's palliative care note for additional information. (3) Undifferentiated carcinoma: Status: Chronic (4) Pneumonia due to COVID-19 virus: Status: Acute (5) Respiratory failure with hypoxia: Start time: 01:05 Status: Acute PFSH All Active Problems (Updated 01/04/23 @ 13:13 by Melyssa Joel MD) Pneumonia due to COVID-19 virus (Acute) Advanced care planning/counseling discussion (Acute) Palliative care encounter (Acute) Hypovolemic shock (Acute) Proteinuria (Acute) Respiratory failure with hypoxia (Acute) Hypoalbuminemia (Acute) Hypomagnesemia (Acute) LOLA (acute kidney injury) (Acute) Hyponatremia (Acute) Anemia (Chronic) Leukopenia (Acute) Colitis (Acute) Repeated falls (Acute) Falls (Acute) Undifferentiated carcinoma (Chronic) Septic shock (Acute) Pneumonia (Acute) COVID-19 (Acute) Social History Smoking risk assessment performed?: No Alcohol Intake: former Drug use: Occasionally Substance use type: marijuana Details: Uses THC eatables Do you feel safe at home: Yes Do you feel safe in your relationship?: Yes Exam Narrative Exam Narrative: Awake and alert, able to talk in complete sentences. However appears to have abdominal breathing, respiratory rate elevated 24/28. Seems mildly dyspneic at rest. Coughs once. Appears to have some temporal wasting. Pleasant, occasionally smiles. Has scabs over his lips, lower lip slightly red and edematous. However mucous membranes are moist. Results Last Vital Signs Temp 36.7 C 01/04/23 04:15 Pulse 75 01/04/23 04:30 Resp 21 01/04/23 04:30 BP 101/56 L 01/04/23 04:30 Pulse Ox 94 01/04/23 04:30 Labs 01/03/23 16:24 01/04/23 05:35 Labs: Laboratory Results - last 24 hr 01/03/23 01/03/23 01/03/23 16:24 16:24 16:24 WBC 2.92 L RBC 3.61 L Hgb 11.9 L Hct 33.3 L MCV 92 MCH 33.0 MCHC 35.7 RDW 17.8 H Plt Count 178 MPV 9.8 Immature Gran % 0.7 Neutrophils % 58.3 Lymphocytes % 18.8 Monocytes % 21.9 Eosinophils % 0.0 Basophils % 0.3 Nucleated RBC % 0.0 Absolute Neutrophils 1.70 Absolute Lymphocytes 0.55 L Absolute Monocytes 0.64 Absolute Eosinophils 0.00 Absolute Basophils 0.01 VBG Lactate 1.4 Sodium 135 L Potassium 4.4 Chloride 100 Carbon Dioxide 25.8 Anion Gap 9.2 BUN 26 H Creatinine 1.4 H Est GFR (CKD-EPI 2020) 52.74 Glucose 120 H Calcium 8.3 L Magnesium 1.4 L Total Bilirubin 0.4 AST 23 ALT 45 Alkaline Phosphatase 78 Troponin I < 50 Total Protein 6.5 Albumin 2.8 L TSH Urine Color Urine Clarity Urine pH Ur Specific [place] Urine Protein Urine Ketones Urine Blood Urine Nitrite Urine Bilirubin Urine Urobilinogen Ur Leukocyte Esterase Urine RBC Urine WBC Ur Epithelial Cells Urine Crystals Urine Bacteria Urine Casts Urine Mucus Urine Other Ur Culture Indicated? Urine Glucose COVID-19 Source SARS-CoV-2 (PCR) Add-On Test Request 01/03/23 01/03/23 01/03/23 16:24 17:34 17:36 WBC RBC Hgb Hct MCV MCH MCHC RDW Plt Count MPV Immature Gran % Neutrophils % Lymphocytes % Monocytes % Eosinophils % Basophils % Nucleated RBC % Absolute Neutrophils Absolute Lymphocytes Absolute Monocytes Absolute Eosinophils Absolute Basophils VBG Lactate Sodium Potassium Chloride Carbon Dioxide Anion Gap BUN Creatinine Est GFR (CKD-EPI 2020) Glucose Calcium Magnesium Total Bilirubin AST ALT Alkaline Phosphatase Troponin I Total Protein Albumin TSH 0.77 Urine Color Yellow Urine Clarity Clear Urine pH 7.0 Ur Specific [place] 1.015 Urine Protein >=300 H Urine Ketones Negative Urine Blood Trace-intact H Urine Nitrite Negative Urine Bilirubin Negative Urine Urobilinogen 0.2 Ur Leukocyte Esterase Negative Urine RBC 0-2 Urine WBC 0-2 Ur Epithelial Cells Few Urine Crystals Negative Urine Bacteria Rare Urine Casts Negative Urine Mucus Trace Urine Other Few Transitional Ur Culture Indicated? No Urine Glucose Negative COVID-19 Source Nasal/Nares SARS-CoV-2 (PCR) Positive A* Add-On Test Request 01/03/23 01/04/23 01/04/23 18:48 05:35 07:18 WBC Cancelled RBC Cancelled Hgb Cancelled Hct Cancelled MCV Cancelled MCH Cancelled MCHC Cancelled RDW Cancelled Plt Count Cancelled MPV Cancelled Immature Gran % Neutrophils % Lymphocytes % Monocytes % Eosinophils % Basophils % Nucleated RBC % Absolute Neutrophils Absolute Lymphocytes Absolute Monocytes Absolute Eosinophils Absolute Basophils VBG Lactate Sodium Potassium Chloride Carbon Dioxide Anion Gap BUN Creatinine Est GFR (CKD-EPI 2020) Glucose Calcium Magnesium Total Bilirubin AST ALT Alkaline Phosphatase Troponin I < 50 Total Protein Albumin TSH Urine Color Urine Clarity Urine pH Ur Specific [place] Urine Protein Urine Ketones Urine Blood Urine Nitrite Urine Bilirubin Urine Urobilinogen Ur Leukocyte Esterase Urine RBC Urine WBC Ur Epithelial Cells Urine Crystals Urine Bacteria Urine Casts Urine Mucus Urine Other Ur Culture Indicated? Urine Glucose COVID-19 Source SARS-CoV-2 (PCR) Add-On Test Request TNP
[2023-01-04 09:40] LABS: ALT 32 U/L (16-63); AST 20 U/L (15-37); Albumin 2.1 g/dL (3.4-5.0); Alkaline Phosphatase 62 U/L (46-116); Anion Gap 7.8 mmol/L (3-11); BUN 22 mg/dL (7-18); Bilirubin, Total 0.3 mg/dL (0.2-1.0); CO2 25.2 mmol/L (21.0-32.0); CREATININE 1.2 mg/dL (0.70-1.30); Chloride 104 mmol/L (98-107); Estimated GFR 63.46 (mL/min/1.73m2); Glucose 141 mg/dL (74-106); Magnesium 2.2 mg/dL (1.8-2.4); Sodium 137 mmol/L (136-145); Total Protein 5.7 g/dL (6.4-8.2)
[2023-01-04 10:05] LABS: D-Dimer 4472 ng/mlFEU (<500)
[2023-01-04 10:20] LABS: Ferritin > 2000 ng/mL (26-388)
[2023-01-04 10:30] LABS: C-Reactive Protein 20.45 mg/dL (0.0-0.3); LDH 137 U/L (85-227)
--- NOTE | 2023-01-04 10:36 | PHA.REVIEW2 ---
Pharmacy Admission Review Admission Clinical Review Admission Pharmacy Review: (Updated 01/04/23 @ 07:38 by Huma Alcantar MD) Hypovolemic shock (Acute) Proteinuria (Acute) Respiratory failure with hypoxia (Acute) Hypoalbuminemia (Acute) Hypomagnesemia (Acute) LOLA (acute kidney injury) (Acute) Hyponatremia (Acute) Leukopenia (Acute) Colitis (Acute) Repeated falls (Acute) Falls (Acute) Septic shock (Acute) Pneumonia (Acute) COVID-19 (Acute) niacin Adverse Reaction (Intermediate, Unverified 01/03/23 17:35) Skin Rash clarithromycin [From Biaxin] Adverse Reaction (Unknown, Unverified 01/03/23 17:35) Resuscitation Status Full Code Height 5 ft 6.5 in Weight 61.9 kg Comments Comments/Follow Ups: Hx head/neck Cancer on chemo, septic, Covid positive with no known exposure, Fever x 1, WBC 2.9, BP soft, was tachy, 2L/min Oxygen earlier, now weaning, Micro BC pending, Chest xray ruled out PE, RLL Pneumonia, CT scan of head s/p fall with no findings. Full code. Pulmonary consult placed Pharmacy Admission Review Renal Dosing Renal Dosing: CrCl~40ml/min BUN 22 mg/dL (7-18) H 01/04/23 05:35 Creatinine 1.2 mg/dL (0.70-1.30) 01/04/23 05:35 Medications needing adjustments: Reviewed (Watch Zosyn dosing closely, if SCr worsens, will need an adjustment) Anticoagulation Anticoagulation: Hgb Cancelled 01/04/23 05:35 Hct Cancelled 01/04/23 05:35 Plt Count Cancelled 01/04/23 05:35 Creatinine 1.2 mg/dL (0.70-1.30) 01/04/23 05:35 DVT Prophylaxis: Reviewed (COVID patient in ICU, although Med surg status, on Lovenox 40mg Q24h...oxygen off at the moment with SAT's in 90's, checking with MD if therapeutic Lovenox is warranted) Relevant Labs Relevant Labs: Sodium 137 mmol/L (136-145) 01/04/23 05:35 Potassium 4.0 mmol/L (3.5-5.1) 01/04/23 05:35 Chloride 104 mmol/L (98-107) 01/04/23 05:35 Magnesium 2.2 mg/dL (1.8-2.4) 01/04/23 05:35 C-Reactive Protein 20.45 mg/dL (0.0-0.3) H 01/04/23 07:03 Ferritin>2000, D-Dimer 4472 Cardiac Review Cardiac Review: Troponin I < 50 ng/L (<or=60) 01/03/23 18:48 Home Meds Home Med List reviewed: Intervened (no home meds entered...will request Med Rec) Pharmacy Antibiotic Review Relevant Labs: Relevant Labs 01/04/23 07:03 Lactate Dehydrogenase 137 C-Reactive Protein 20.45 H Pharmacy Antibiotic Activity: Reviewed, no change (Zosyn/Doxy/Remdesivir) Comments Comments/Follow Ups: Hx head/neck Cancer on chemo, septic, Covid positive with no known exposure, Fever x 1, WBC 2.9, BP soft, was tachy, 2L/min Oxygen earlier, now weaning, Micro BC pending, Chest xray ruled out PE, RLL Pneumonia, CT scan of head s/p fall with no findings. Full code. Pulmonary consult placed
--- NOTE | 2023-01-04 11:48 | NUR.NOTE ---
Stat lock applied to adams catheter at 09:30 a.m.Nursing Note:
--- NOTE | 2023-01-04 11:48 | NUR.NOTE ---
RN calls kitchen to get strawberry ensure delivered on patient's lunch tray.Nursing Note:
--- NOTE | 2023-01-04 14:22 | PDOC.CMIN ---
Date of service: 01/04/23 Time of Service: 14:22 Care Management Initial Assmt Initial Assessment REASON FOR HOSPITALIZATION:: Septic Shock, pneumonia, COVID, differentiated cancer PREVIOUS FUNCTIONAL STATUS/SOCIAL/FAMILY SUPPORTS:: Yazmin, Paula CURRENT FUNCTIONAL STATUS:: In ICU on Covid precautions ADVANCE DIRECTIVES:: None on file Has patient been provided with info about the portal/API?: No Did the patient sign up for the portal?: No CODE STATUS:: Full Code CODE STATUS COMMENT:: Palliative consult today INSURANCE COVERAGE / FINANCIAL ISSUES:: AARP MCR Supplemental CURRENT HOME/COMMUNITY SERVICES/EQUIPMENT:: NCCC: Chemo PRIMARY CARE PHYSICIAN:: Jose Madrigal POTENTIAL DISCHARGE NEEDS:: Follow up appointments, Palliative consult PATIENT/FAMILY EDUCATION NEEDS:: Review discharge instructions, discuss Ask Me Three. ANTICIPATED BARRIERS TO DISCHARGE:: None identified at this time. TRANSPORTATION:: Via private vehicle with PLAN:: Anticipate Dante will return home when ready per MD, follow up with community providers and his plan of care as prescribed. He will transport via private vehicle with his . PFSH All Active Problems (Updated 01/04/23 @ 13:13 by Melyssa Joel MD) Pneumonia due to COVID-19 virus (Acute) Advanced care planning/counseling discussion (Acute) Palliative care encounter (Acute) Hypovolemic shock (Acute) Proteinuria (Acute) Respiratory failure with hypoxia (Acute) Hypoalbuminemia (Acute) Hypomagnesemia (Acute) LOLA (acute kidney injury) (Acute) Hyponatremia (Acute) Anemia (Chronic) Leukopenia (Acute) Colitis (Acute) Repeated falls (Acute) Falls (Acute) Undifferentiated carcinoma (Chronic) Septic shock (Acute) Pneumonia (Acute) COVID-19 (Acute) Social History Smoking risk assessment performed?: No Alcohol Intake: former Drug use: Occasionally Substance use type: marijuana Details: Uses THC eatables Do you feel safe at home: Yes Do you feel safe in your relationship?: Yes
--- NOTE | 2023-01-04 17:06 | RESPIRATORY ---
RT Assessment Start: 01/04/23 06:53 Freq: .q shift and prn Status: Active Protocol: Document 01/04/23 16:25 (Rec: 01/04/23 16:36 [id number]) RT Assessment Pulmonary History Pulmonary History COPD Smoking History Smoking/Tobacco Use Status Former Tobacco Use Tobacco: How many years used 34 Quit Date 07/15/02 Tobacco Type cigarettes Packs per Day 4 Cigarettes per Day 70 Years smoked 34 Smoking packs per day 4 OXYGEN HISTORY: Supplemental O2 At Rest 0 With Exertion 0 CPAP Settings N/A BIPAP Settings N/A Trilogy/AVAPS Settings N/A DME/Compliance DME N/A Compliance N/A Current Respiratory Symptoms Current Respiratory Symptoms Shortness of breath Activity Activity Level Very active states that he works in the garage all day. Respiratory Breath Sounds Breath Sounds Any abnormal sounds, decreased breath sounds Response No change Pulse Rate >100 Respiratory Rate 18-25 Shortness of Breath On exertion Respiratory Therapy Score Total 4 Assessment and Plan RT Treatment Protocol Bronchodilator Aerosol Therapy Protocol Note Pt states that at home he uses a Breztri inhaler along with a nebulizer in the morning - unsure of what medication the nebulizer is. He also has a resuce inhaler, but does not feel he is dependent on it throughout the day. Pt states that he has chronic sputum production every day and normally takes Mucinex at home on a daily basis. Breath sounds grossly diminished throughout. Pt currently 95% on room air, resting comfortably. Mild score of 4, most of which is likely chronic. Recommend to continue and review home medications, RT provided initial instruction of cough and deep breathing - patient able to clear secretions independently and on demand. Being that patient is currently Covid positive, RT recommends to change nebulizer treatments to inhalers to minimize aersolization in the room.
[2023-01-04 17:22] LABS: C Diff PCR Negative (Negative)
[2023-01-04] MEDS: REMDESIVIR 100 MG in Normal Saline 250 ML 250 MG IVPB (20:02)
[2023-01-04] MEDS: Enoxaparin 40 MG/0.4 ML SYR SC (21:15)
[2023-01-05] VITALS (71 sets, daily range): BP systolic 117–173; BP diastolic 82–115; PULSE 82–129; RESP 18–39; TEMP 36.6–37; O2SAT 91–97
[2023-01-05] MEDS: PIPERACILLIN/TAZO 3.375 GM in Normal Saline 50 ML IVPB ×4 (04:51→21:47)
[2023-01-05] MEDS: Albuterol HFA 8 GM 60 PUFF INH IH ×2 (04:53→10:55)
[2023-01-05] MEDS: DOXYCYCLINE 100 MG in Normal Saline 100 ML IVPB ×2 (06:17→18:06)
[2023-01-05 06:20] LABS: Abs Immature Grans 0.05 10^3/uL (0.0-0.06); HCT 30.6 % (40.0-50.0); HGB 10.7 g/dL (13.5-17.5); MCH 32.3 pg (27.0-33.0); MCV 92 fL (80-95); MPV 10.5 fL (8.0-11.0); Platelet Count 194 10^3/uL (130-400); RBC 3.31 10^6/uL (4.36-5.78); RDW 18.2 % (11.8-14.1); RDW-SD 60.3 fL
[2023-01-05 06:51] LABS: Absolute Lymphocyte Count 1.09 10^3/uL (1.2-3.4); Absolute Monocyte Count 1.29 10^3/uL (0.1-0.8); Absolute Neutrophil Count 7.52 10^3/uL (1.2-6.7); Atypical Lymphocytes % 1; Bands % 4; Diff Comment Manual Differential; RBC Morphology Normal
--- NOTE | 2023-01-05 07:49 | W.PM.PROGNOT ---
Date of Service Date of service: 01/04/23 Time of Service: 07:49 Assessment and Plan Assessment and plan (1) Septic shock: Start date: 01/03/23 Status: Acute Assessment and plan: This is a 72-year-old gentleman presenting with complex of symptoms of weakness and recent falls with negative imaging for injury with acute onset of fever and hypotension with concerns for sepsis with shock. However, appears to be hypovolemic shock with evidence for this on bedside POCUS exam by Dr Alcantar. Lactate normal. IV bolus of LR given. Maintenance fluids stopped. Norepinephrine was stopped at 0300 this AM. (2) Pneumonia: Start date: 01/03/23 Status: Acute Assessment and plan: Continue Zosyn and doxycycline with follow-up images as needed. Respiratory support as needed with oxygen. Monitor cardiac and respiratory status. He continues to require ICU level care. When ready for D/C; Augmentin for 10 day total course of antibiotics. Urine legionella and strep antigens pending. Fungitell pending. Blood cxs pending. (3) COVID-19: Start date: 01/03/23 Status: Acute Assessment and plan: Patient has was the respiratory and GI symptoms with his infection with suggested colitis and right lower lobe infiltrates. He is unaware of exposure. Continue remdesivir 200 mg initially then 1 mg daily x4. He also will have Lovenox for DVT prophylaxis dexamethasone 6 mg IV daily. Trend inflammatory markers. Leukopenia; monitor ANC (4) Undifferentiated carcinoma: Start date: 09/12/22 Status: Chronic Assessment and plan: Patient will continue chemotherapy and oncology consultation with ongoing decision making is to treatment options. Palliative consult appreciated. Code status now DNR/DNI (5) Repeated falls: Start date: 12/29/22 Status: Acute Assessment and plan: Patient is losing weight with his new diagnosis of undifferentiated carcinoma with the treatment making him feel ill. He did fall recently and was uncertain as to whether he had hurt himself a CT scan of the head revealing no sequela or injuries as well as other imaging being unrevealing for acute trauma. Patient therapy and outpatient therapy once he is improving from his treatment of shock. Prognosis is poor. Subjective Subjective Patient reports: feels better, tolerating a regular diet (Diminished appetite; prefers protein shakes) and afebrile; denies vomiting Exam Narrative Exam Narrative: Pt in isolation d/t Covid-19 dx. States he is feeling better. Afebrile. HR 110's. BP Mean 60's to 90's. Objective Last Vital Signs Temp 36.9 C 01/05/23 00:30 Pulse 108 H 01/05/23 06:00 Resp 20 01/05/23 06:01 BP 148/92 H 01/05/23 06:00 Pulse Ox 95 01/05/23 06:27 Laboratory Results - last 24 hr 01/04/23 01/04/23 01/04/23 05:35 07:03 07:04 WBC RBC Hgb Hct MCV MCH MCHC RDW Plt Count MPV Immature Gran % Neutrophils % Band Neutrophils % Lymphocytes % Atypical Lymphs % Monocytes % Eosinophils % Basophils % Nucleated RBC % Absolute Neutrophils Absolute Lymphocytes Absolute Monocytes Absolute Eosinophils Absolute Basophils RBC Morphology D-Dimer 4472 H Sodium 137 Potassium 4.0 Chloride 104 Carbon Dioxide 25.2 Anion Gap 7.8 BUN 22 H Creatinine 1.2 Est GFR (CKD-EPI 2020) 63.46 Glucose 141 H Calcium 8.0 L Magnesium 2.2 Ferritin > 2000 H Total Bilirubin 0.3 AST 20 ALT 32 Alkaline Phosphatase 62 Lactate Dehydrogenase 137 C-Reactive Protein 20.45 H Total Protein 5.7 L Albumin 2.1 L Stl C.difficile Tox PCR Urine Legionella Ag 01/04/23 01/04/23 01/05/23 16:07 16:15 05:55 WBC 9.90 RBC 3.31 L Hgb 10.7 L Hct 30.6 L MCV 92 MCH 32.3 MCHC 35.0 RDW 18.2 H Plt Count 194 MPV 10.5 Immature Gran % 0.0 Neutrophils % 72.0 Band Neutrophils % 4 Lymphocytes % 10.0 Atypical Lymphs % 1 Monocytes % 13.0 Eosinophils % 0.0 Basophils % 0.0 Nucleated RBC % 0.0 Absolute Neutrophils 7.52 H Absolute Lymphocytes 1.09 L Absolute Monocytes 1.29 H Absolute Eosinophils 0.00 Absolute Basophils 0.00 RBC Morphology Normal D-Dimer Sodium Potassium Chloride Carbon Dioxide Anion Gap BUN Creatinine Est GFR (CKD-EPI 2020) Glucose Calcium Magnesium Ferritin Total Bilirubin AST ALT Alkaline Phosphatase Lactate Dehydrogenase C-Reactive Protein Total Protein Albumin Stl C.difficile Tox PCR Negative Urine Legionella Ag Cancelled Time Spent with Patient Time Spent with Patient: 25-34 minutes Time was spent: preparing to see the patient(eg.review tests), obtaining and/or reviewing separately otained hiistory, ordering medications,tests, procedures, referring, communicating with other health care management assistant and indepentently interpreting results
[2023-01-05] MEDS: Dexamethasone 10 MG/ML VIAL 6 MG IVP (08:32)
[2023-01-05] MEDS: Normal Saline 500 ML 20 ML IV ×2 (08:34→18:07)
[2023-01-05] MEDS: Loperamide 2 MG CAP PO ×3 (10:19→21:47)
--- NOTE | 2023-01-05 11:40 | NUR.NOTE ---
RN spends time with patient just talking about a variety of things. Patient appreciates RN taking time to socialize with him.Nursing Note:
--- NOTE | 2023-01-05 13:10 | TELEP.MEDR_ITS ---
Date of service: 01/05/23 Time of Service: 13:10 [facility] Home Med Rec Allergies Allergies: niacin Adverse Reaction (Intermediate, Unverified 01/03/23 17:35) Skin Rash clarithromycin [From Biaxin] Adverse Reaction (Unknown, Unverified 01/03/23 17:35) Interview Person Interviewed: * (Paula) Quality Quality of Interview/Accuracy of Medication List: Good Sources Sources used to compile medication list: Patient List and SureScripts Changes made to Home Medication List: ADDITIONS: * Albuterol MDI 2 puff q4h PRN * Atorvastatin 40mg PO qHS * Breztri 2 puffs BID * Lomotil 1 tab PO QID PRN * Duoneb via neb QID * Methylphenidate CD 30mg PO daily * Montelukast 10mg PO qHS * Omeprazole 40mg PO daily * Ondansetron 4mg PO BID * Testosterone 60mg IM weekly (on ) * MVI 1 tab PO daily * Aspirin 81mg PO daily * Vit D3 - 1000 units PO daily * Vit C - 1000mg PO daily * Glucosamine/Chondroitin PO daily * Flonase 1 spray EN daily * Acetaminophen 650mg PO q6h PRN DELETIONS: * none CHANGES: * none Additional Notes Additional Notes: * Patient has also been using magic mouth wash for mouth sores, reports the sores have improved Recommended Changes Recommended Changes(reason for recommendation): * none Attestation: The home medication list is now updated to the best of my knowledge and is ready to be reconciled by the provider. Please contact the [facility] Medication Reconciliation Pharmacist at for any questions.
--- NOTE | 2023-01-05 13:10 | TELEP.MEDREC ---
Date of service: 01/05/23 Time of Service: 13:10 Telepharmacy Home Med Rec Allergies Allergies: niacin Adverse Reaction (Intermediate, Unverified 01/03/23 17:35) Skin Rash clarithromycin [From Biaxin] Adverse Reaction (Unknown, Unverified 01/03/23 17:35) Interview Person Interviewed: (Paula) Quality Quality of Interview/Accuracy of Medication List: Good Sources Sources used to compile medication list: Patient List and SureScripts Changes made to Home Medication List: ADDITIONS: Albuterol MDI 2 puff q4h PRN Atorvastatin 40mg PO qHS Breztri 2 puffs BID Lomotil 1 tab PO QID PRN Duoneb via neb QID Methylphenidate CD 30mg PO daily Montelukast 10mg PO qHS Omeprazole 40mg PO daily Ondansetron 4mg PO BID Testosterone 60mg IM weekly (on ) MVI 1 tab PO daily Aspirin 81mg PO daily Vit D3 - 1000 units PO daily Vit C - 1000mg PO daily Glucosamine/Chondroitin PO daily Flonase 1 spray EN daily Acetaminophen 650mg PO q6h PRN DELETIONS: none CHANGES: none Additional Notes Additional Notes: Patient has also been using magic mouth wash for mouth sores, reports the sores have improved Recommended Changes Recommended Changes(reason for recommendation): none Attestation: The home medication list is now updated to the best of my knowledge and is ready to be reconciled by the provider. Please contact the TelePharmacy Medication Reconciliation Pharmacist at for any questions.
--- NOTE | 2023-01-05 17:28 | W.PM.PROGNOT ---
Date of Service Date of service: 01/05/23 Time of Service: 17:28 Assessment and Plan Assessment and plan (1) Septic shock: Start date: 01/03/23 Status: Acute Assessment and plan: This is a 72-year-old gentleman presenting with complex of symptoms of weakness and recent falls with negative imaging for injury with acute onset of fever and hypotension with concerns for sepsis with shock. However, appears to be hypovolemic shock with evidence for this on bedside POCUS exam by Dr Alcantar. Lactate normal. IV bolus of LR given. Maintenance fluids stopped. Previous on norepinephrine; now off. (2) Pneumonia: Start date: 01/03/23 Status: Acute Assessment and plan: Continue Zosyn and doxycycline with follow-up images as needed. Respiratory support as needed with oxygen. Monitor cardiac and respiratory status. He continues to require ICU level care. When ready for D/C; Augmentin for 10 day total course of antibiotics. Urine legionella and strep antigens pending. Fungitell pending. Blood cxs pending. (3) COVID-19: Start date: 01/03/23 Status: Acute Assessment and plan: Patient has was the respiratory and GI symptoms with his infection with suggested colitis and right lower lobe infiltrates. He is unaware of exposure. Continue remdesivir 200 mg initially then 1 mg daily x4. He also will have Lovenox for DVT prophylaxis dexamethasone 6 mg IV daily. Trend inflammatory markers. Leukopenia; monitor ANC (4) FTT (failure to thrive) in adult: Status: Acute Assessment and plan: Began when initiated chemotx. Poor sense of taste with subsequent poor intake. Now with PNA and Covid-19. Encouraging po intake. 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 Palliative consult appreciated. Code status now DNR/DNI (6) Repeated falls: Start date: 12/29/22 Status: Acute Assessment and plan: Patient is losing weight with his new diagnosis of undifferentiated carcinoma with the treatment making him feel ill. He did fall recently and was uncertain as to whether he had hurt himself a CT scan of the head revealing no sequela or injuries as well as other imaging being unrevealing for acute trauma. Patient therapy and outpatient therapy once he is improving from his treatment of shock. Prognosis is poor. Subjective Subjective Patient reports: no new complaints, tolerating a regular diet (mostly drinking protein shakes; poor sense of taste) and afebrile; denies nausea, vomiting or shortness of breath Exam Narrative Exam Narrative: Pt in isolation d/t Covid-19 dx. Gen: sitting up in bed. NAD Lungs: coarse upper airway sounds. CV: RRR. Abd: soft, NT, ND. Exts: No edema, calf tenderness. . Objective Last Vital Signs Temp 37.0 C 01/05/23 14:21 Pulse 85 01/05/23 14:21 Resp 28 H 01/05/23 14:21 BP 167/94 H 01/05/23 14:21 Pulse Ox 96 01/05/23 14:21 Laboratory Results - last 24 hr 01/05/23 05:55 WBC 9.90 RBC 3.31 L Hgb 10.7 L Hct 30.6 L MCV 92 MCH 32.3 MCHC 35.0 RDW 18.2 H Plt Count 194 MPV 10.5 Immature Gran % 0.0 Neutrophils % 72.0 Band Neutrophils % 4 Lymphocytes % 10.0 Atypical Lymphs % 1 Monocytes % 13.0 Eosinophils % 0.0 Basophils % 0.0 Nucleated RBC % 0.0 Absolute Neutrophils 7.52 H Absolute Lymphocytes 1.09 L Absolute Monocytes 1.29 H Absolute Eosinophils 0.00 Absolute Basophils 0.00 RBC Morphology Normal Time Spent with Patient Time Spent with Patient: 25-34 minutes Time was spent: preparing to see the patient(eg.review tests), obtaining and/or reviewing separately otained hiistory, ordering medications,tests, procedures, referring, communicating with other health hearing care professional and indepentently interpreting results
[2023-01-05] MEDS: Budesonide/Formoterol 160/4.5 6 GM 60 PUFF INH IH (19:22)
[2023-01-05] MEDS: Acetaminophen 325 MG TAB PO (19:22)
[2023-01-05] MEDS: REMDESIVIR 100 MG in Normal Saline 250 ML 250 MG IVPB (20:04)
[2023-01-05] MEDS: Enoxaparin 40 MG/0.4 ML SYR SC (21:46)
[2023-01-05] MEDS: Atorvastatin 40 MG TAB PO (21:47)
[2023-01-05] MEDS: Montelukast 10 MG TAB PO (21:49)
[2023-01-05 22:51] LABS: Legionella Ag Detection Urine Negative (Negative)
[2023-01-06] VITALS (46 sets, daily range): BP systolic 129–184; BP diastolic 79–118; PULSE 68–119; RESP 19–34; TEMP 36.6–39.9; O2SAT 91–97
[2023-01-06] MEDS: PIPERACILLIN/TAZO 3.375 GM in Normal Saline 50 ML IVPB ×4 (03:41→22:01)
[2023-01-06] MEDS: DOXYCYCLINE 100 MG in Normal Saline 100 ML IVPB ×2 (05:47→17:20)
[2023-01-06 06:13] LABS: Abs Immature Grans 0.05 10^3/uL (0.0-0.06); Absolute Basophil Count 0.03 10^3/uL (0.0-0.2); Absolute Eosinophil Count 0.01 10^3/uL (0.0-0.7); Absolute Lymphocyte Count 1.66 10^3/uL (1.2-3.4); Absolute Monocyte Count 1.23 10^3/uL (0.1-0.8); Absolute Neutrophil Count 6.96 10^3/uL (1.2-6.7); Basophils % 0.3; Eosinophils % 0.1; HGB 10.4 g/dL (13.5-17.5); Immature Grans % 0.5; Lymphocytes % 16.7; MCH 33.1 pg (27.0-33.0); MCHC 35.9 % (32.0-36.0); MCV 92 fL (80-95); MPV 10.6 fL (8.0-11.0); Monocytes % 12.4; Platelet Count 197 10^3/uL (130-400); RBC 3.14 10^6/uL (4.36-5.78); RDW 17.8 % (11.8-14.1); RDW-SD 58.7 fL; WBC 9.94 10^3/uL (4.4-10.8)
[2023-01-06 06:27] LABS: C-Reactive Protein 8.61 mg/dL (0.0-0.3)
[2023-01-06 06:28] LABS: BUN 28 mg/dL (7-18); CREATININE 0.8 mg/dL (0.70-1.30); Calcium 8.3 mg/dL (8.5-10.1); Chloride 104 mmol/L (98-107); Estimated GFR 92.87 (mL/min/1.73m2); Glucose 80 mg/dL (74-106); Potassium 3.4 mmol/L (3.5-5.1); Sodium 137 mmol/L (136-145)
[2023-01-06 06:50] LABS: D-Dimer 3180 ng/mlFEU (<500)
[2023-01-06] MEDS: Budesonide/Formoterol 160/4.5 6 GM 60 PUFF INH IH ×2 (08:37→19:37)
--- NOTE | 2023-01-06 09:04 | IN_ITS ---
PT Notes Visit Reasons: Septic Shock,Pneumonia,Covid19,Poor Differenti [place] Inpatient Physical Therapy Evaluation Date: 01/06/23 Referring Doctor: Dr. Roberts PT Orders: PT CONSULT: limited ability to ambulate Precautions: COVID-19 Patient Profile/Admitting Diagnosis: Patient admitted for management of complex of symptoms of weakness and recent falls with negative imaging for injury with acute onset of fever and hypotension with concerns for sepsis with shock. Diagnosed with COVID-19 on 01/03/23, and currently undergoing chemotherapy for undifferentiated carcinoma. Social History/Home Situation: Patient lives with his in a private home. Independent at baseline, although struggling with last two cycles of chemo, resulting in reduced ability to participate in hobbies, yard work, etc. Reports a single fall in his camper last week, after getting light headed when he stood up too fast. 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 She works nights, and he is home alone overnight. He states that he goes to bed before she leaves. Sometimes gets up to use the bathroom in the night, which is approx 10' from his bed. Equipment Owned/DME: none, but states that he has access to FWW, cane whatever I need Subjective: Dante states that he is feeling much better. He is anxious to return home. Objective: General Observation: Resting in bed with multiple lines. IV to right chest, pulse oximetry, telemetry, Kwon catheter. Room air. Mental Status: A&Ox3 Pain: denies Vital Signs: SaO2 remains 91% or above throughout session. HR does increase to 125 during ambulation, with mild MEDRANO. ROM: Right Upper Extremity: Shoulder flexion 110*. Otherwise WFL Left Upper Extremity: Shoulder flexion to 135*. Otherwise WFL Right Lower Extremity: WFL Left Lower Extremity: WFL Strength: Right Upper Extremity: Shoulder flexion 3-/5. Biceps 4+/5. Triceps 4/5. Left Upper Extremity: Shoulder flexion 3-/5. Biceps 4+/5. Triceps 4/5. Right Lower Extremity: Hip flexion 4/5. Quads 4+/5. Ankle DF 4+/5. Left Lower Extremity: Hip flexion 4/5. Quads 4+/5. Ankle DF 4+/5. Bed Mobility/Transfers: supine-sit: independent sit-stand: supervision stand-sit: supervision, with cues for management of lines Gait: Ambulates 5'x1 and 3'x1 with supervision. Balance: Static Sitting: normal Dynamic Sitting: normal Static Standing: good Dynamic Standing: good Special Tests: Mobility Limitations Standardized Measure [facility] AM-PAC 6 clicks Basic Mobility Inpatient Short Form: Raw Score: 21 CMS Score: 29% impairment Informed Consent/Education: Patient instructed in purpose of PT consult and plan of care. Assessment: Patient is a 72 year old male referred to physical therapy services with the diagnosis of limited ability to ambulate due to acute medical issues. Patient presents with clinical signs and symptoms consistent with diagnosis. He demonstrates good safety awareness and ambulates short distances with assistance only for management of his multiple lines. Does demonstrate continued limitation in activity tolerance, and requires FWW for home use during the night while his is at work. He'll benefit from continued PT intervention during the course of his stay in order to maximize activity tolerance, however, is safe to return home once medically stable. He currently demonstrates the following impairment level findings: 1. decreased strength 2. decreased activity tolerance Impairments are contributing to the following functional limitations: 1. decreased tolerance to household distance ambulation Patient is assessed as low complexity (86277) based on the following: History: Patient is a 72 year old male with medical history including undifferentiated carcinoma, currently undergoing chemotherapy treatment, admitted for medical management of septic shock and COVID-19. He demonstrates sufficient safety to return home, however will benefit from HH PT to address continued limitations in activity tolerance and maximize safety and mobility upon return home. Examination: functional limitations as noted above Presentation: evolving Decision Making: low complexity Goals: 1. Improve activity tolerance to allow for ambulation >25' with FWW Plan of Care/Treatment Plan: Patient demonstrates sufficient safety to return home once medically stable. During remainder of hospitalization, will be seen 1x/day for therapeutic exercises to maximize activity tolerance. Care may be provided by [facility] and POC has been discussed with [facility]. DISCHARGE RECOMMENDATIONS: Home with HH PT. TREATMENT CODE/TIME: 9:00 -9:35 ([id number]) Marisol Angela, PT, DPT [facility] All Active Problems (Updated 01/05/23 @ 17:33 by Swapnil Roberts MD) FTT (failure to thrive) in adult (Acute) Pneumonia due to COVID-19 virus (Acute) Advanced care planning/counseling discussion (Acute) Palliative care encounter (Acute) Hypovolemic shock (Acute) Proteinuria (Acute) Respiratory failure with hypoxia (Acute) Hypoalbuminemia (Acute) Hypomagnesemia (Acute) LOLA (acute kidney injury) (Acute) Hyponatremia (Acute) Anemia (Chronic) Leukopenia (Acute) Colitis (Acute) Repeated falls (Acute) Falls (Acute) Undifferentiated carcinoma (Chronic) Septic shock (Acute) Pneumonia (Acute) COVID-19 (Acute)
[2023-01-06] MEDS: Aspirin E.C. 81 MG TABEC PO (09:24)
[2023-01-06] MEDS: guaiFENesin 600 MG TABCR PO ×2 (09:24→19:53)
[2023-01-06] MEDS: Dexamethasone 10 MG/ML VIAL 6 MG IVP (09:24)
[2023-01-06] MEDS: Loperamide 2 MG CAP PO (09:43)
--- NOTE | 2023-01-06 14:42 | PGE_ITS ---
Date of Service Date of service: 01/06/23 Time of Service: 14:42 Assessment and Plan Assessment and plan (1) Septic shock: Start date: 01/03/23 Status: Acute Assessment and plan: This is a 72-year-old gentleman presenting with complex of symptoms of weakness and recent falls with negative imaging for injury with acute onset of fever and hypotension with concerns for sepsis with shock. However, appears to be hypovolemic shock with evidence for this on bedside POCUS exam by Dr Alcantar. Lactate normal. IV bolus of LR given. Maintenance fluids stopped. Previous on norepinephrine; now off. (2) Pneumonia: Start date: 01/03/23 Status: Acute Assessment and plan: Continue Zosyn and doxycycline with follow-up images as needed. Requiring no supplemental oxygen. Now med-surg level care. When ready for D/C; Augmentin for 10 day total course of antibiotics. Urine legionella and strep antigens pending. Fungitell pending. Blood cxs neg [id number]. (3) COVID-19: Start date: 01/03/23 Status: Acute Assessment and plan: Patient has was the respiratory and GI symptoms with his infection with suggested colitis and right lower lobe infiltrates. He is unaware of exposure. Continue remdesivir 200 mg initially then 1 mg daily x4. Lovenox for DVT prophylaxis dexamethasone 6 mg IV daily. Trend inflammatory markers. Leukopenia initially. Now normal. (4) FTT (failure to thrive) in adult: Status: Acute Assessment and plan: Began when initiated chemotx. Poor sense of taste with subsequent poor intake. Now with PNA and Covid-19. Encouraging po intake. 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 Palliative consult appreciated. Code status now DNR/DNI (6) Repeated falls: Start date: 12/29/22 Status: Acute Assessment and plan: Patient is losing weight with his new diagnosis of undifferentiated carcinoma with the treatment making him feel ill. He did fall recently and was uncertain as to whether he had hurt himself a CT scan of the head revealing no sequela or injuries as well as other imaging being unrevealing for acute trauma. Plan on home tomorrw AM. Subjective Subjective Patient reports: no new complaints, feels better, tolerating a regular diet (Most of his intake is via protein shakes.), vomiting and afebrile; denies nausea or shortness of breath Interval history since last seen: He adamantly wants to go home. Evaluated by PT today. Exam Narrative Exam Narrative: Pt in isolation d/t Covid-19 dx. Gen: Lying in bed. NAD Lungs: coarse upper airway sounds. CV: RRR. Abd: soft, NT, ND. Exts: No edema, calf tenderness. . Objective Last Vital Signs Temp 37.4 C 01/06/23 12:00 Pulse 107 H 01/06/23 13:00 Resp 31 H 01/06/23 13:00 BP 161/102 H 01/06/23 13:00 Pulse Ox 96 01/06/23 13:00 Laboratory Results - last 24 hr 01/05/23 01/05/23 01/06/23 18:19 Unknown 05:50 WBC 9.94 RBC 3.14 L Hgb 10.4 L Hct 29.0 L MCV 92 MCH 33.1 H MCHC 35.9 RDW 17.8 H Plt Count 197 MPV 10.6 Immature Gran % 0.5 Neutrophils % 70.0 Lymphocytes % 16.7 Monocytes % 12.4 Eosinophils % 0.1 Basophils % 0.3 Nucleated RBC % 0.0 Absolute Neutrophils 6.96 H Absolute Lymphocytes 1.66 Absolute Monocytes 1.23 H Absolute Eosinophils 0.01 Absolute Basophils 0.03 D-Dimer Sodium Potassium Chloride Carbon Dioxide Anion Gap BUN Creatinine Est GFR (CKD-EPI 2020) Glucose Calcium C-Reactive Protein Cancelled Add-On Test Request TNP 01/06/23 01/06/23 01/06/23 05:50 05:50 05:50 WBC RBC Hgb Hct MCV MCH MCHC RDW Plt Count MPV Immature Gran % Neutrophils % Lymphocytes % Monocytes % Eosinophils % Basophils % Nucleated RBC % Absolute Neutrophils Absolute Lymphocytes Absolute Monocytes Absolute Eosinophils Absolute Basophils D-Dimer 3180 H Sodium 137 Potassium 3.4 L Chloride 104 Carbon Dioxide 24.0 Anion Gap 9.0 BUN 28 H Creatinine 0.8 Est GFR (CKD-EPI 2020) 92.87 Glucose 80 Calcium 8.3 L C-Reactive Protein 8.61 H Add-On Test Request Time Spent with Patient Time Spent with Patient: 25-34 minutes Time was spent: preparing to see the patient(eg.review tests), obtaining and/or reviewing separately otained hiistory, ordering medications,tests, procedures, referring, communicating with other health caregiver services home, indepentently interpreting results and care coordination
[2023-01-06 16:21] LABS: Streptococcus Pneumoniae Ag, U Negative (Negative)
[2023-01-06] MEDS: Normal Saline Flush 10 ML SYR IVP (16:28)
[2023-01-06] MEDS: Potassium Chloride 20 MEQ TABCR PO (19:52)
[2023-01-06] MEDS: REMDESIVIR 100 MG in Normal Saline 250 ML 250 MG IVPB (19:53)
[2023-01-06] MEDS: Atorvastatin 40 MG TAB PO (22:00)
[2023-01-06] MEDS: Montelukast 10 MG TAB PO (22:00)
[2023-01-06] MEDS: Enoxaparin 40 MG/0.4 ML SYR SC (22:00)
--- NOTE | 2023-01-06 22:17 | NUR.NOTE ---
Patient for transfer to MED/[facility]URG. Report given to Mr. Jose De Jesus RN. Patient provided update with plan of care. Patient belongings sent with patient. -
--- NOTE | 2023-01-06 23:00 | NUR.NOTE ---
Nursing Note: Pt transferred from ICU via WC. Pt on Covid precautions. Transported with mask on pat; N95 masks worn by RN caregivers. Report received from JOY Stone. Pt placed in room 228 with airborne negative pressure. Assessment completed. BP noted to be hypertensive. Notified JOY Bowie Clinical Coordinator to report to MD. Pt assisted into bed. Zosyn abx infusing to Rt port. Pt requested beverage and cup for sputum. Provided Melissa yanick and emesis basin. Denies pain or additional needs at this time.
[2023-01-07 04:19] VITALS: BP 154/90; PULSE 94; RESP 22; TEMP 37.1; O2SAT 94
[2023-01-07] MEDS: PIPERACILLIN/TAZO 3.375 GM in Normal Saline 50 ML IVPB (05:01)
[2023-01-07] MEDS: DOXYCYCLINE 100 MG in Normal Saline 100 ML IVPB (06:02)
--- NOTE | 2023-01-07 06:36 | DSE_ITS ---
Date of service: 01/07/23 Time of Service: 06:37 DS: Diagnosis Discharge Diagnosis (1) Hypovolemic shock: Status: Acute Asessment and Plan: POCUS performed at bedside by Dr Alcantar, Bowling [employer], indicated hypovolemia. With fluid resuscitation and a period of time on norepinephrine, his BP normalized and the norepinephrine was stopped. He then was consistently hypertensive. He was discharged on amlodipine 5mg daily. (2) Pneumonia: Status: Acute Asessment and Plan: +Covid-19 with likely bacterial PNA as well. Multi-lobar pneumonia. He was treated with Zosyn and doxycycline, dexamethasone and remdesivir. He progress well. He required no supplemental O2. D/C on Augmentin 875mg BID to complete a 10 day course of antibiotics. (3) COVID-19: Status: Acute Asessment and Plan: He should wear an N95 or Kn98 mask for the next 5 days minimal to protect contacts. 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 Cont supplementing diet with protein shakes. Consider marinol for appetite stimulation. (5) Undifferentiated carcinoma: Status: Chronic Asessment and Plan: Cont f/u and tx per oncology. (6) Colitis: Status: Acute Asessment and Plan: Likely finding of inflammation d/t subacute to chronic diarrhea. PRN immodium. 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 He is on chemotherapy since then and is feeling worse with recent constipation having watery stools and shortness of breath with dizziness having fallen about 4 to 5 days prior to admission when standing from bed.? He is generally weak and worsening and states that this has been since initiating chemotherapy and his new diagnosis of undifferentiated carcinoma.? In the ED he was given IV fluid resuscitation with his tachycardia improving but he continuedto be tachypneic and felt weak.? He did test positive for COVID and found to have a probable right lower lobe pneumonia / infiltrate which was covered with IV antibiotic therapy. He did have fever along with his weakness with diaphoresis and has had increased urination and loose stools as mentioned.? He denied any dysuria.? He did not know where he may have contracted COVID. The patient was hypotensive in the ED and there is concern for septic shock the patient initially treated with IV fluids and norepinephrine infusion.? Admitted to the ICU. See Diagnosis ? PCP follow up in 1-2 weeks Follow up with oncology per their recommendation Home Meds and New Rx's Prescriptions: New amoxicillin-pot clavulanate 875-125 mg tablet 1 tab PO BID Qty: 14 0RF Rx Instructions: First dose the night of 01/07/23 amlodipine 5 mg tablet 5 mg PO DAILY Qty: 30 0RF Continued nystatin 100,000 unit/mL Suspension 5 ml BUCCAL QID Rx Instructions: administer 1/2 of dose in each side of the mouth prochlorperazine maleate 10 mg Tablet 10 mg PO Q6H PRN PRN atorvastatin 40 mg tablet 40 mg PO HS Patient Comments: Take 1 tablet by mouth every evening for cholesterol ipratropium-albuterol 0.5 mg-3 mg(2.5 mg base)/3 mL solution for nebulization 3 ml INHALATION QID Patient Comments: inhale contents of 1 vial ( 3 milliliters ) in nebulizer by mouth... (REFER TO PRESCRIPTION NOTES). ondansetron HCl 4 mg tablet 4 mg PO BID Patient Comments: take 1 tablet by mouth every 8 hours if needed for nausea diphenoxylate-atropine 2.5-0.025 mg tablet 1 tab PO QID PRN PRN Patient Comments: take 1 tablet by mouth four times a day for diarrhea omeprazole 40 mg capsule,delayed release(DR/EC) 40 mg PO DAILY Patient Comments: take 1 capsule by mouth every morning 30 MINUTES BEFORE BREAKFAST FOR GERD montelukast 10 mg tablet 10 mg PO HS Patient Comments: take 1 tablet by mouth nightly testosterone cypionate 200 mg/mL oil 60 mg IM QWEEK Patient Comments: INJECT 0.3 MILLILITERS INTRAMUSCULARLY WEEKLY Rx Instructions: -on albuterol sulfate 90 mcg/actuation HFA aerosol inhaler 2 puff INHALATION Q4H PRN PRN Patient Comments: inhale 2 puffs by mouth and INTO THE LUNGS every 6 hours if neede... (REFER TO PRESCRIPTION NOTES). methylphenidate HCl 30 mg capsule, ER biphasic 30-70 30 mg PO DAILY Patient Comments: take 1 capsule by mouth every morning Dana Aerosphere 160-9-4.8 mcg/actuation HFA aerosol inhaler 2 inh INHALATION BID Patient Comments: INHALE 2 PUFFS BY MOUTH INTO THE LUNGS 2 TIMES DAILY multivitamin Tablet 1 tab PO DAILY ascorbic acid (vitamin C) 1,000 mg Tablet 1,000 mg PO DAILY acetaminophen 325 mg Tablet 650 mg PO Q6H PRN PRN aspirin 81 mg Tablet,Delayed Release (Dr/Ec) 81 mg PO DAILY fluticasone propionate 50 mcg/actuation [place],Suspension 1 spray INTRANASAL DAILY Rx Instructions: administer into each nostril cholecalciferol (vitamin D3) 25 mcg (1,000 unit) Tablet 25 mcg PO DAILY No Action (DME) needle (disp) 23 gauge 23 gauge x 1 Needle MISCELLANEOUS Rx Instructions: to use with Testosterone cyp injection weekly (DME) syringe with needle 1 mL 27 x 1/2 Syringe MISCELLANEOUS Rx Instructions: for use with Testosterone cyp injection once a week Glucosamine Chondroitin 550-30-1 mg Capsule 1 cap PO DAILY Discharge Instructions Activity:: Activity as Tolerated Equipment/Supplies:: No Equipment Needed Diet:: As Tolerated DS: Summary Time Spent with Patient providing and/or coordinating discharge services: Greater than 30 minutes Status at Discharge Functional status at discharge: independent ambulation Overall status at discharge: patient is progressing back to baseline Mental Status: mental status grossly normal Speech and Movement: speech clear Mood: anxious mood Affect: normal affect Exam Narrative Exam Narrative: Pt in isolation d/t Covid-19 dx. Gen: Lying in bed. NAD Lungs: coarse upper airway sounds. CV: RRR. Abd: soft, NT, ND. Exts: No edema, calf tenderness. . Psych Mental Status: mental status grossly normal Speech and Movement: speech clear Mood: anxious mood Affect: normal affect DS: Data Vitals/I&O Vitals and I&O: Vital Signs Temperature 37.1 C 01/07/23 04:19 Temperature Source Tympanic 01/07/23 04:19 Pulse 94 H 01/07/23 04:19 Pulse Rhythm Regular 01/06/23 23:15 Pulse 84 01/06/23 20:00 Respiratory Rate 22 01/07/23 04:19 Respiratory Effort Short of Breath 01/06/23 23:15 Respiratory Depth Normal 01/06/23 23:15 Respiratory Pattern Normal 01/06/23 23:15 Blood Pressure 154/90 H 01/07/23 04:19 Blood Pressure Mean 111 01/06/23 19:58 Blood Pressure Position Sitting 01/06/23 00:00 Pulse Oximetry 94 01/07/23 04:19 Oxygen Delivery Method Room Air 01/07/23 04:19 Oxygen Flow Rate 0 01/07/23 04:19 Pain Level 0 01/06/23 23:15 Comment RN notified 01/04/23 04:15 Intake & Output 01/06/23 01/06/23 01/07/23 11:59 23:59 11:59 Intake Total 924.833 / 1734.833 810 / 1734.833 Output Total 1040 / 2815 1475 / 2815 600 / 600 Balance -115.167 / -1080.167 -665 / -1080.167 -600 / -600 Weight 59.6 kg Intake: IV 704.833 / 1154.833 450 / 1154.833 Oral 220 / 580 360 / 580 Output: Urine 1040 / 2815 1475 / 2815 600 / 600 Other: Urine Color Yellow Yellow Yellow Urine Appearance Clear Clear Clear Urine Odor None None Stool Size Moderate Stool Characteristics Liquid Mucoid Voiding Methods Urinal Urinal Data Completed and Pending Labs on day of discharge: Labs from last 24 hours 01/07/23 01/07/23 01/07/23 05:35 05:35 05:35 WBC RBC Hgb Hct MCV MCH MCHC RDW Plt Count MPV Immature Gran % Neutrophils % Lymphocytes % Monocytes % Eosinophils % Basophils % Absolute Neutrophils Absolute Lymphocytes Absolute Monocytes Absolute Eosinophils Absolute Basophils D-Dimer Pending Sodium Pending Potassium Pending Chloride Pending Carbon Dioxide Pending Anion Gap Pending BUN Pending Creatinine Pending Est GFR (CKD-EPI 2020) Pending Glucose Pending Calcium Pending C-Reactive Protein Pending 01/07/23 01/06/23 05:35 05:50 WBC Pending RBC Pending Hgb Pending Hct Pending MCV Pending MCH Pending MCHC Pending RDW Pending Plt Count Pending MPV Pending Immature Gran % Pending Neutrophils % Pending Lymphocytes % Pending Monocytes % Pending Eosinophils % Pending Basophils % Pending Absolute Neutrophils Pending Absolute Lymphocytes Pending Absolute Monocytes Pending Absolute Eosinophils Pending Absolute Basophils Pending D-Dimer 3180 H Sodium Potassium Chloride Carbon Dioxide Anion Gap BUN Creatinine Est GFR (CKD-EPI 2020) Glucose Calcium C-Reactive Protein Preliminary micro results at discharge 01/03/23 16:33 Blood Culture - Preliminary Blood NO GROWTH 72 HOURS 01/03/23 16:24 Blood Culture - Preliminary Blood NO GROWTH 72 HOURS 01/05/23 13:00 Sputum Culture - Preliminary Sputum Staphylococcus Aureus PFSH All Active Problems (Updated 01/05/23 @ 17:33 by Swapnil Roberts MD) FTT (failure to thrive) in adult (Acute) Pneumonia due to COVID-19 virus (Acute) Advanced care planning/counseling discussion (Acute) Palliative care encounter (Acute) Hypovolemic shock (Acute) Proteinuria (Acute) Respiratory failure with hypoxia (Acute) Hypoalbuminemia (Acute) Hypomagnesemia (Acute) LOLA (acute kidney injury) (Acute) Hyponatremia (Acute) Anemia (Chronic) Leukopenia (Acute) Colitis (Acute) Repeated falls (Acute) Falls (Acute) Undifferentiated carcinoma (Chronic) Septic shock (Acute) Pneumonia (Acute) COVID-19 (Acute) Social History Smoking/Tobacco Use Status: Former Tobacco Use Quit Date: 07/15/02 Tobacco: How many years used: 34 Smoking risk assessment performed?: Yes Alcohol Intake: former Drug use: Occasionally Substance use type: marijuana Details: Uses THC eatables Do you feel safe at home: Yes Do you feel safe in your relationship?: Yes Time Spent with Patient Time Spent with Patient: 45-69 minutes Time was spent: preparing to see the patient(eg.review tests), obtaining and/or reviewing separately otained hiistory, referring, communicating with other health administrator health care facility, indepentently interpreting results, counseling the patient and care coordination
[2023-01-07 07:01] LABS: Abs Immature Grans 0.13 10^3/uL (0.0-0.06); Absolute Basophil Count 0.03 10^3/uL (0.0-0.2); Absolute Eosinophil Count 0.01 10^3/uL (0.0-0.7); Absolute Lymphocyte Count 1.77 10^3/uL (1.2-3.4); Absolute Monocyte Count 1.46 10^3/uL (0.1-0.8); Absolute Neutrophil Count 6.67 10^3/uL (1.2-6.7); Basophils % 0.3; Eosinophils % 0.1; HCT 31.2 % (40.0-50.0); HGB 11.1 g/dL (13.5-17.5); Immature Grans % 1.3; Lymphocytes % 17.6; MCH 32.4 pg (27.0-33.0); MCHC 35.6 % (32.0-36.0); MCV 91 fL (80-95); MPV 11.1 fL (8.0-11.0); Monocytes % 14.5; Neutrophils % 66.2; Platelet Count 240 10^3/uL (130-400); RBC 3.43 10^6/uL (4.36-5.78); RDW 17.3 % (11.8-14.1); WBC 10.07 10^3/uL (4.4-10.8)
[2023-01-07 07:22] LABS: Anion Gap 10.7 mmol/L (3-11); BUN 28 mg/dL (7-18); CO2 23.3 mmol/L (21.0-32.0); Calcium 8.3 mg/dL (8.5-10.1); Chloride 101 mmol/L (98-107); Estimated GFR 78.98 (mL/min/1.73m2); Glucose 82 mg/dL (74-106); Potassium 3.6 mmol/L (3.5-5.1); Sodium 135 mmol/L (136-145)
[2023-01-07 07:25] LABS: C-Reactive Protein 7.05 mg/dL (0.0-0.3)
[2023-01-07] MEDS: Amoxicillin 875/Clav. 125 TAB PO (07:31)
[2023-01-07] MEDS: Dexamethasone 10 MG/ML VIAL 6 MG IVP (07:31)
[2023-01-07] MEDS: Potassium Chloride 20 MEQ TABCR PO (07:32)
[2023-01-07] MEDS: Aspirin E.C. 81 MG TABEC PO (07:32)
[2023-01-07] MEDS: guaiFENesin 600 MG TABCR PO (07:32)
[2023-01-07] MEDS: amLODIPine 5 MG TAB PO (07:32)
[2023-01-07 07:36] LABS: D-Dimer 3223 ng/mlFEU (<500)
[2023-01-07 07:38] VITALS: BP 166/88; PULSE 80; RESP 20; TEMP 36.5; O2SAT 95
[2023-01-07] MEDS: Budesonide/Formoterol 160/4.5 6 GM 60 PUFF INH IH (07:39)
[2023-01-07] MEDS: Loperamide 2 MG CAP PO (07:57)
[2023-01-07] MEDS: Acetaminophen 325 MG TAB PO (07:57)
[2023-01-07 11:42] LABS: Lyme Ab w Rflx to Lyme Confirm Negative (Negative)
--- NOTE | 2023-01-07 12:55 | PDOC.CMDIS ---
Date of service: 01/07/23 Time of Service: 12:55 LACE Index Scoring Tool Questions: Length of Stay (in days): 4 - 6 Was the patient admitted via the E.D.?: Yes Comorbidities: Any Tumor E.D. Visits: 1 Answers: Total Score: 10 Risk of Readmission: High Risk Care Management Discharge Plan Reason for Hospitalization: Septic Shock, pneumonia, COVID, differentiated cancer Discharge Plan: Dante will return home with no new services. He will follow up with community providers and his plan of care as prescribed and will transport via private vehicle with his . Patient/Family Education Needs: Review discharge instructions, activity, limitations, follow up plan and discuss Ask Me Three.
[2023-01-07 13:42] LABS: Fungitell Qualitative Negative (Negative); Fungitell Quantitative Value <31 pg/mL (<60 pg/mL)
[2023-01-08 15:42] LABS: Anaplasma phagocytophilum Negative (Negative); B. miyamotoi PCR Negative (Negative); Babesia divergens/MO-1 Negative (Negative); Babesia duncani Negative (Negative); Babesia microti Negative (Negative); Ehrlichia chaffeensis Negative (Negative); Ehrlichia ewingii/canis Negative (Negative); Ehrlichia muris eauclairensis Negative (Negative)
--- NOTE | 2023-01-10 17:00 | INDS_ITS ---
Date of service: 01/07/23 PT Notes Visit Reasons: Shock ,Pneumonia,Covid19,Poor Differenti CA Physical Therapy Inpatient Discharge Summary Date: 01/07/23 Dates of service: 01/06/2023 only This is a clinical summary of care provided for the duration of dates listed above. No charge was made in the completion of this documentation. Referring Doctor:? Dr. Roberts PT Orders: PT CONSULT: limited ability to ambulate Precautions: COVID-19 Patient Profile/Admitting Diagnosis:??Patient admitted for management of? complex of symptoms of weakness and recent falls with negative imaging for injury with acute onset of fever and hypotension with concerns for sepsis with shock. Diagnosed with COVID-19 on 01/03/23, and currently undergoing chemotherapy for undifferentiated carcinoma. PFSH All Active Problems?(Updated 01/05/23 @ 17:33 by Swapnil Roberts MD) FTT (failure to thrive) in adult (Acute) Pneumonia due to COVID-19 virus (Acute) Advanced care planning/counseling discussion (Acute) Palliative care encounter (Acute) Hypovolemic shock (Acute) Proteinuria (Acute) Respiratory failure with hypoxia (Acute) Hypoalbuminemia (Acute) Hypomagnesemia (Acute) LOLA (acute kidney injury) (Acute) Hyponatremia (Acute) Anemia (Chronic) Leukopenia (Acute) Colitis (Acute) Repeated falls (Acute) Falls (Acute) Undifferentiated carcinoma (Chronic) Septic shock (Acute) Pneumonia (Acute) COVID-19 (Acute) Social History/Home Situation: Patient lives with his in a private home. Independent at baseline, although struggling with last two cycles of chemo, resulting in reduced ability to participate in hobbies, yard work, etc. Reports a single fall in his camper last week, after getting light headed when he stood up too fast. 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 She works nights, and he is ho me alone overnight. He states that he goes to bed before she leaves. Sometimes gets up to use the bathroom in the night, which is approx 10' from his bed. Equipment Owned/DME: none, but states that he has access to FWW, cane whatever I need Subjective: NT. See most recent [employer] notes. Objective:? General Observation: NT. See most recent [employer] notes. Mental Status: NT. See most recent [employer] notes. Pain: NT. See most recent [employer] notes. Vital Signs: NT. See most recent [employer] notes. ROM: Right Upper Extremity: Shoulder flexion 110*. Otherwise WFL Left Upper Extremity: Shoulder flexion to 135*. Otherwise WFL Right Lower Extremity: WFL Left Lower Extremity: WFL Strength: Right Upper Extremity: Shoulder flexion 3-/5. Biceps 4+/5. Triceps 4/5. Left Upper Extremity: Shoulder flexion 3-/5. Biceps 4+/5. Triceps 4/5. Right Lower Extremity: Hip flexion 4/5. Quads 4+/5. Ankle DF 4+/5. Left Lower Extremity: Hip flexion 4/5. Quads 4+/5. Ankle DF 4+/5. Bed Mobility/Transfers: supine-sit: independent sit-stand: supervision stand-sit: supervision, with cues for management of lines Gait:? Ambulates 5'x1 and 3'x1 with supervision. Balance:? Static Sitting: normal Dynamic Sitting: normal Static Standing: good Dynamic Standing: good Assessment:??Patient is a 72 year old male referred to physical therapy services with the diagnosis of limited ability to ambulate due to acute medical issues.? Patient presents with clinical signs and symptoms consistent with diagnosis. He demonstrates good safety awareness and ambulates short distances with assistance only for management of his multiple lines. Does demonstrate continued limitation in activity tolerance, and requires FWW for home use during the night while his is at work. He'll benefit from continued PT intervention during the course of his stay in order to maximize activity tolerance, however, is safe to return home once medically stable. He currently demonstrates the following impairment level findings: 1. decreased strength 2. decreased activity tolerance Impairments are contributing to the following functional limitations: 1. decreased tolerance to household distance ambulation Patient is assessed as low complexity (21528) based on the following: History: Patient is a 72 year old male with medical history including undifferentiated carcinoma, currently undergoing chemotherapy treatment, admit aleena for medical management of septic shock and COVID-19. He demonstrates sufficient safety to return home, however will benefit from PT to address continued limitations in activity tolerance and maximize safety and mobility upon return home. Examination: functional limitations as noted above Presentation: evolving Decision Making: low complexity Goals: 1. Improve activity tolerance to allow for ambulation >25' with FWW NOT MET DISCHARGE RECOMMENDATIONS: ?Home with HH PT. TREATMENT CODE/TIME: NC Thank you for the opportunity to participate in the care of this patient. Tiffani Olivia PT, DPT, CLT [facility] [place], [place]
== END 2023-01-07 10:35 | disposition home or self-care (01) | DRG 177 ==
LOC: ER 18:17 → ICU 19:15 → MS 01-07 06:38
PROVIDERS: Family Medicine; Internal Medicine; Student in an Organized Health Care Education/Training Program; Admitting Provider Family Medicine; Emergency Provider Student in an Organized Health Care Education/Training Program; PCP Family Medicine; Visit Provider Family Medicine
DX: U07.1 COVID-19 (principal); J12.82 Pneumonia due to coronavirus disease 2019; J15.9 Unspecified bacterial pneumonia; J96.01 Acute respiratory failure with hypoxia; R57.1 Hypovolemic shock; E87.1 Hypo-osmolality and hyponatremia; C79.51 Secondary malignant neoplasm of bone; N17.9 Acute kidney failure, unspecified; K52.1 Toxic gastroenteritis and colitis; Z79.899 Other long term (current) drug therapy; R53.1 Weakness; F12.90 Cannabis use, unspecified, uncomplicated; E86.0 Dehydration; E83.42 Hypomagnesemia; R29.6 Repeated falls; R63.4 Abnormal weight loss; Z68.20 Body mass index [BMI] 20.0-20.9, adult; R80.9 Proteinuria, unspecified; D72.819 Decreased white blood cell count, unspecified; D64.9 Anemia, unspecified; C76.0 Malignant neoplasm of head, face and neck; E88.09 Other disorders of plasma-protein metabolism, not elsewhere classified; T45.1X5A Adverse effect of antineoplastic and immunosuppressive drugs, initial encounter; R62.7 Adult failure to thrive
CPT/HCPCS: 36591; 71275; 74177; 80048; 80053; 85027; 87040; 87077; 87449; 87493; 87635; 87798; 93005; 93308; 94640; 97161; J1650; 70450; 81003; 81015; 82728; 83605; 83615; 83735; 84443; 84484; 85025; 85379; 86140; 86618; 87070; 87186; 87205; 87899; 93010; 94664; 94668; 99223; 99232; 99233; 99239; J0248; J1100; J2543; J3475; J3490

== ENCOUNTER 2023-01-14 02:22 | Outpatient (RCR) | payer OTHER, SELFPAY ==
[2023-01-14] MEDS: Normal Saline Flush 10 ML SYR IVP (14:41)
[2023-01-14 14:50] LABS: Abs Immature Grans 0.16 10^3/uL (0.0-0.06); Absolute Basophil Count 0.05 10^3/uL (0.0-0.2); Absolute Eosinophil Count 0.01 10^3/uL (0.0-0.7); Absolute Lymphocyte Count 1.78 10^3/uL (1.2-3.4); Absolute Monocyte Count 1.38 10^3/uL (0.1-0.8); Absolute Neutrophil Count 10.23 10^3/uL (1.2-6.7); Basophils % 0.4; Eosinophils % 0.1; HGB 11.8 g/dL (13.5-17.5); Immature Grans % 1.2; Lymphocytes % 13.1; MCH 32.5 pg (27.0-33.0); MCHC 34.7 % (32.0-36.0); MCV 94 fL (80-95); MPV 10.4 fL (8.0-11.0); Monocytes % 10.1; Neutrophils % 75.1; Platelet Count 299 10^3/uL (130-400); RBC 3.63 10^6/uL (4.36-5.78); RDW-SD 61.1 fL; WBC 13.62 10^3/uL (4.4-10.8)
[2023-01-14 15:10] LABS: ALT 32 U/L (16-63); AST 26 U/L (15-37); Albumin 2.2 g/dL (3.4-5.0); Alkaline Phosphatase 84 U/L (46-116); Anion Gap 8.1 mmol/L (3-11); BUN 26 mg/dL (7-18); Bilirubin, Total 0.4 mg/dL (0.2-1.0); CO2 24.9 mmol/L (21.0-32.0); CREATININE 0.9 mg/dL (0.70-1.30); Calcium 8.8 mg/dL (8.5-10.1); Chloride 100 mmol/L (98-107); Estimated GFR 89.62 (mL/min/1.73m2); FREE T4 1.84 ng/dL (0.76-1.46); Glucose 119 mg/dL (74-106); Magnesium 1.6 mg/dL (1.8-2.4); Potassium 3.8 mmol/L (3.5-5.1); Sodium 133 mmol/L (136-145); TSH 0.59 uIU/mL (0.36-3.74); Total Protein 6.5 g/dL (6.4-8.2)
== END 2023-02-11 23:59 | disposition home or self-care (01) ==
LOC: INF 02:22
PROVIDERS: PCP Family Medicine; Visit Provider Internal Medicine Hematology & Oncology
DX: C76.0 Malignant neoplasm of head, face and neck (principal); Z79.899 Other long term (current) drug therapy
CPT/HCPCS: 36415; 80053; 96523; 83735; 84439; 84443; 85025